=== PATIENT | female | born 1950 | race Two or more races ===

== ENCOUNTER 2021-05-13 08:16 | Inpatient (IN) | payer MEDICARE ==
[~2021-05-13] VITALS: Ht 152.4 cm; Wt 46.3 kg
[2021-05-13] MEDS ORDERED: MORPHINE SULFATE 4 MG/ML INJ. IVP ONE (08:45)
--- NOTE | 2021-05-13 08:59 | RAD ---
EXAM: Abdomen sonogram. HISTORY: Pain. TECHNIQUE: Sonographic imaging of the abdomen was performed. COMPARISON: None. FINDINGS: The liver is normal in size. No focal hepatic lesion is seen. There is cholelithiasis. Ther e is gallbladder distention and gallbladder wall thickening suggesting superimposed cholecystitis. Th e common bile duct is normal in caliber. The right kidney, pancreas and inferior vena cava are unrema rkable. IMPRESSION: Cholelithiasis with suspected superimposed cholecystitis. Electronically signed by: Willow Villanueva MD (05/13/2021 8:57 AM) [id number]
[2021-05-13 09:05] LABS: BASO # 0.1 x10^3/uL (0.0-0.2); BASO % 1 % (0-3); EOS # 0.1 x10^3/uL (0.0-0.7); EOS % 2 % (0-3); HEMATOCRIT 36.6 % (36.0-47.0); HEMOGLOBIN 12.3 g/dL (12.0-15.5); LYMPH # 0.9 x10^3/uL (1.0-4.8); LYMPH % 12 % (24-48); MEAN CORPUSCULAR HEMOGLOBIN 31 pg (25-35); MEAN CORPUSCULAR HGB CONC 34 g/dL (31-37); MEAN CORPUSCULAR VOLUME 91 fL (79-100); MONO # 0.8 x10^3/uL (0.0-1.1); MONO % 10 % (0-9); NEUT # 5.6 x10^3/uL (1.8-7.7); NEUT % 75 % (31-73); PLATELET COUNT 214 x10^3/uL (140-400); RED BLOOD COUNT 4.02 x10^6/uL (3.50-5.40); RED CELL DISTRIBUTION WIDTH 14.1 % (11.5-14.5); WHITE BLOOD COUNT 7.4 x10^3/uL (4.0-11.0)
[2021-05-13 09:14] LABS: CALCIUM 8.9 mg/dL (8.5-10.1); CREATININE 0.7 mg/dL (0.6-1.0); POTASSIUM 4.3 mmol/L (3.5-5.1)
--- NOTE | 2021-05-13 09:19 | RAD ---
EXAM: Chest, single view. HISTORY: Right upper quadrant pain. COMPARISON: None. FINDINGS: A frontal view of the chest is obtained. There is no infiltrate, pleural effusion or pneumo thorax. The heart is normal in size. IMPRESSION: No acute pulmonary finding. Electronically signed by: Willow Villanueva MD (05/13/2021 9:16 AM) [id number]
[2021-05-13 09:20] LABS: ALBUMIN 3.1 g/dL (3.4-5.0); DIRECT BILIRUBIN 0.6 mg/dL (0.0-0.2); TOTAL BILIRUBIN 1.2 mg/dL (0.2-1.0); TOTAL PROTEIN 6.6 g/dL (6.4-8.2)
--- NOTE | 2021-05-13 09:35 | EKG ---
[facility] [address] [place] [address] Test Date: 2021-05-13 Test Time: 08:55:46 Pat Name: SHAHRIAR ROSALES Department: Room: Gender: F Application Programmer Analyst: : 1950 Requested By: ANNY OSBORN Order Number: [id number] Reading MD: Scott Francisco Measurements Intervals [place] Rate: 70 P: 36 [place]: 142 QRS: -9 QRSD: 74 T: 15 QT: 370 QTc: 402 Interpretive Statements SINUS RHYTHM LEFTWARD AXIS QRS(T) CONTOUR ABNORMALITY CONSIDER ANTEROSEPTAL MYOCARDIAL DAMAGE POSSIBLY ABNORMAL ECG RI6.01 No previous ECG available for comparison Electronically Signed On 05-14-2021 14:25:57 SURFACE SUPPLY BREATHING APPARATUS by Scott Francisco
--- NOTE | 2021-05-13 10:07 | PHYS DOC ---
Past Medical History Past Surgical History: No Surgical History Smoking Status: Never Smoker Alcohol Use: None General Adult EDM: Chief Complaint: ABDOMINAL PAIN HPI: HPI: 71 yo F presents to the ED with her biological daughter, (patient consents to his/her/their knowledge and involvement in pts' medical care), with c/o "a lot of stomach pain," described as right sided and upper abdominal pain for the past month and a half. Also reports low back pain. Patient's daughter states she recently had an endoscopy with [facility] on 05/08 that showed a schatzis ring. Pt also c/o being tired and dizzy and almost fainted yesterday. Has a pending liver biopsy scheduled for . Review of Systems: Review of Systems: Constitutional: Denies fever or chills. [] Eyes: Denies change in visual acuity. [] HENT: Denies nasal congestion or sore throat. [] Respiratory: Denies cough or shortness of breath. [] Cardiovascular: Denies chest pain or edema. [] GI: Denies nausea, vomiting, bloody stools or diarrhea. [] : Denies dysuria or hematuria Musculoskeletal: Denies flank pain or joint pain. [] Integument: Denies rash or diaphoresis Neurologic: Denies headache, focal weakness or sensory changes. [] Endocrine: Denies polyuria or polydipsia. [] Lymphatic: Denies swollen glands. [] Psychiatric: Denies depression or anxiety. [] Heart Score: C/O Chest Pain: No Risk Factors: Risk Factors: DM, Current or recent (<one month) smoker, HTN, HLP, family hist ory of CAD, obesity. Risk Scores: Score 0 - 3: 2.5% MACE over next 6 weeks - Discharge Home Score 4 - 6: 20.3% MACE over next 6 weeks - Admit for Clinical Observation Score 7 - 10: 72.7% MACE over next 6 weeks - Early Invasive Strategies Current Medications: Current Medications Medications (Trade) Dose Ordered Sig/Flor Start Time Stop Time Status Last Admin Dose Admin Morphine Sulfate (Morphine Sulfate) 4 mg 1X ONCE 05/13/21 08:45 05/13/21 08:46 DC 05/13/21 08:52 4 MG Allergies: Allergies: Allergies Coded Allergies Type Severity Reaction Last Updated Verified No Known Drug Allergies 05/13/21 No Physical Exam: PE: Constitutional: Well developed, well nourished, no acute distress, non-toxic appearance. HENT: Normocephalic, atraumatic, Eyes: EOMI, conjunctiva normal, no discharge. Neck: Normal range of motion, supple, Cardiovascular: S1/2 present, regular rhythm Lungs & Thorax: Speaking in full sentences, bilateral equal chest rise, no tachypnea or increased work of breathing Abdomen: soft, diffuse tenderness Skin: Warm, dry, no erythema, no rash. [] Back: reports midline lumbar back pain, no step offs Extremities: No tenderness, no cyanosis, no lower extremity edema Neurologic: Alert and oriented X 3, normal motor function, normal sensory function, no focal deficits noted. [] Psychologic: Affect normal, judgement normal, mood normal. [] Current Patient Data: Labs: Laboratory Tests Test 05/13/21 08:48 White Blood Count 7.4 x10^3/uL (4.0-11.0) Red Blood Count 4.02 x10^6/uL (3.50-5.40) Hemoglobin 12.3 g/dL (12.0-15.5) Hematocrit 36.6 % (36.0-47.0) Mean Corpuscular Volume 91 fL (79-100) Mean Corpuscular Hemoglobin 31 pg (25-35) Mean Corpuscular Hemoglobin Concent 34 g/dL (31-37) Red Cell Distribution Width 14.1 % (11.5-14.5) Platelet Count 214 x10^3/uL (140-400) Neutrophils (%) (Auto) 75 % (31-73) H Lymphocytes (%) (Auto) 12 % (24-48) L Monocytes (%) (Auto) 10 % (0-9) H Eosinophils (%) (Auto) 2 % (0-3) Basophils (%) (Auto) 1 % (0-3) Neutrophils # (Auto) 5.6 x10^3/uL (1.8-7.7) Lymphocytes # (Auto) 0.9 x10^3/uL (1.0-4.8) L Monocytes # (Auto) 0.8 x10^3/uL (0.0-1.1) Eosinophils # (Auto) 0.1 x10^3/uL (0.0-0.7) Basophils # (Auto) 0.1 x10^3/uL (0.0-0.2) Sodium Level 140 mmol/L (136-145) Potassium Level 4.3 mmol/L (3.5-5.1) Chloride Level 102 mmol/L (98-107) Carbon Dioxide Level 27 mmol/L (21-32) Anion Gap 11 (6-14) Blood Urea Nitrogen 15 mg/dL (7-20) Creatinine 0.7 mg/dL (0.6-1.0) Estimated GFR (Cockcroft-Gault) 83.0 Glucose Level 108 mg/dL (70-99) H Calcium Level 8.9 mg/dL (8.5-10.1) Total Bilirubin 1.2 mg/dL (0.2-1.0) H Direct Bilirubin 0.6 mg/dL (0.0-0.2) H Aspartate Amino Transferase (AST) 236 U/L (15-37) H Alanine Aminotransferase (ALT) 190 U/L (14-59) H Alkaline Phosphatase 864 U/L (46-116) H Creatine Kinase 60 U/L (26-192) Total Protein 6.6 g/dL (6.4-8.2) Albumin 3.1 g/dL (3.4-5.0) L Lipase 112 U/L (73-393) Laboratory Tests 05/13/21 08:48 Laboratory Tests 05/13/21 08:48 Vital Signs: Vital Signs Date Time Temp Pulse Resp B/P (MAP) Pulse Ox O2 Delivery O2 Flow Rate FiO2 05/13/21 09:35 20 97 Room Air 05/13/21 08:25 98.1 82 134/63 (86) 98.1 EKG: EKG: Sinus rhythm 70 bpm, left axis deviation, normal intervals, T wave inversion lead III and V3, no ST elevation or ST depression Radiology/Procedures: Radiology/Procedures: []IMAGING REPORT Signed PATIENT: SHAHRIAR ROSALES EACCOUNT: [id number] : 1950 LOCATION: ER AGE: 71 SEX: F EXAM STATUS: PRE ER ORD. PHYSICIAN: ANNY OSBORN DO REASON: ruq pain PROCEDURE: PORTABLE CHEST 1V EXAM: Chest, single view. HISTORY: Right upper quadrant pain. COMPARISON: None. FINDINGS: A frontal view of the chest is obtained. There is no infiltrate, pleural effusion or pneumothorax. The heart is normal in size. IMPRESSION: No acute pulmonary finding. Electronically signed by: Willow Ramirez MD (05/13/2021 9:16 AM) [id number] DICTATED and SIGNED BY: WILLOW RAMIREZ MD DATE: 05/13/21 [id number] 0 IMAGING REPORT Signed PATIENT: SHAHRIAR ROSALES EACCOUNT: [id number] : 1950 LOCATION: ER AGE: 71 SEX: F EXAM STATUS: PRE ER ORD. PHYSICIAN: ANNY OSBORN DO REASON: ruq pain, r/o adriano PROCEDURE: ABDOMEN LTD EXAM: Abdomen sonogram. HISTORY: Pain. TECHNIQUE: Sonographic imaging of the abdomen was performed. COMPARISON: None. FINDINGS: The liver is normal in size. No focal hepatic lesion is seen. There is cholelithiasis. There is gallbladder distention and gallbladder wall thickening suggesting superimposed cholecystitis. The common bile duct is normal in caliber. The right kidney, pancreas and inferior vena cava are unremarkable. IMPRESSION: Cholelithiasis with suspected superimposed cholecystitis. Electronically signed by: Willow Ramirez MD (05/13/2021 8:57 AM) [id number] DICTATED and SIGNED BY: WILLOW RAMIREZ MD DATE: 05/13/21 [id number] 0 IMAGING REPORT Signed PATIENT: SHAHRIAR ROSALES EACCOUNT: [id number] : 1950 LOCATION: ER AGE: 71 SEX: F EXAM STATUS: REG ER ORD. PHYSICIAN: ANNY OSBORN DO REASON: diffuse abd pain PROCEDURE: CT ABD PELV W/ IV CONTRST ONLY EXAM: Abdomen and pelvis CT with intravenous contrast; lumbar spine CT without contrast. HISTORY: Pain. TECHNIQUE: Computed tomographic images of the abdomen and pelvis and lumbar spine were obtained following the administration of intravenous contrast. Multiplanar reformatting was performed. *One or more of the following individualized dose reduction techniques were utilized for this examination: 1. Automated exposure control. 2. Adjustment of the mA and/or kV according to patient size. 3. Use of iterative reconstruction technique. COMPARISON: Sonogram obtained on the same date. FINDINGS: Evaluation of the lower thorax demonstrates a 1.3 cm pleural-based nodular opacity with surrounding groundglass within the inferior lateral right middle lobe. There are few tiny groundglass opacities scattered throughout the right middle lobe, lingula and bilateral lower lobes, the largest of which measure approximately 6 mm. The heart is normal in size. There is no pleural effusion. There are innumerable hypodense lesions scattered throughout the liver. The largest of these measures 4.3 cm and demonstrates attenuation greater than simple fluid. There is a small anterior perihepatic fluid collection measuring approximately 12 mm in thickness. There is biliary ductal dilatation. There is gallbladder distention. No pancreatic lesion is seen. The spleen is normal in size. The stomach and adrenal glands are unremarkable. The kidneys are unremarkable. There is colonic diverticulosis. There is no convincing diverticulosis. There is no bowel obstruction. There is calcified atherosclerotic plaque involving the aorta. There is mild mesenteric stranding. No pathologically enlarged lymph node is seen. The bladder is unremarkable. There are partially calcified uterine fibroids. There is a small to moderate amount of pelvic free fluid. There may be a tiny right ovarian follicle. There is mild bilateral hip osteoarthritis. There is bone demineralization. There is multilevel endplate remodeling and Schmorl's node formation involving the lumbar spine. There is no listhesis. Ther e is multilevel facet arthropathy. At L1-L2, there is a shallow right paracentral disc protrusion. There is mild bilateral facet arthropathy. There is no stenosis. At L2-L3, there is a disc bulge and endplate osteophytosis. There is mild bilateral facet arthropathy. There is no stenosis. At L3-L4, there is a disc bulge. There is mild bilateral facet arthropathy. There is no stenosis. At L4-L5, there is a left foraminal to lateral disc protrusion and osteophyte complex superimposed on a disc bulge and endplate remodeling. There is moderate right and mild left facet arthropathy. There is mild left foraminal stenosis. There is moderate central canal stenosis. At L5-S1, there is a right lateral disc osteophyte complex superimposed on a disc bulge and endplate remodeling. There is mild left greater than right facet arthropathy. There is mild bilateral foraminal stenosis. IMPRESSION: 1. Innumerable hypodense lesions throughout the liver measuring up to 4.3 cm. The attenuation of these lesions is not typical for simple cysts. This can be seen with metastatic disease and better characterized with a liver protocol MRI. 2. Small anterior perihepatic fluid collection. 3. Biliary ductal dilatation and gallbladder distention. The cholelithiasis and gallbladder wall thickening demonstrated on the sonogram performed on the same date is not appreciated on this exam. Correlate with symptomatology. 4. 1.3 cm pleural-based nodular opacity with surrounding groundglass within the right middle lobe, possibly infectious or inflammatory in etiology. There are additional scattered tiny groundglass nodules within both lungs measuring up to [address] to assess for additional nodules and nodular opacities may be indicated given the aforementioned abdominal findings. 5. Degenerative change involving the lumbar spine, resulting in stenosis as described above. 6. Small to moderate amount of pelvic free fluid and suspected uterine fibroids. 7. Colonic diverticulosis. Electronically signed by: Willow Ramirez MD (05/13/2021 10:57 AM) [id number] DICTATED and SIGNED BY: WILLOW RAMIREZ MD DATE: 05/13/21 [id number] 0 Course & Med Decision Making: Course & Med Decision Making Pertinent Labs and Imaging studies reviewed. (See chart for details) Ultrasound concerning for acute cholecystitis in the setting of transaminitis. CT abdomen pelvis was pending at time of admission-is concerning for metastatic process w/numerous liver lesions. Pt admitted for further medical management. I have spoken with the patient and/or caregivers. I have explained the patient's condition, diagnosis and treatment plan based on the information available to me at this time. I have answered the patient's and/or caregivers questions and answered any concerns. The patient and/or caregivers have as good an understanding of the patient's diagnosis, condition and treatment plan as can be expected at this point. The patient has been stabilized within the capability of the emergency department. The patient will be transported for further care and management or will be moved to an observation or inpatient se rvice. I have communicated with the staff or medical practitioner taking over this patient's care. Remi Disclaimer: Remi Disclaimer: This electronic medical record was generated, in whole or in part, using a voice recognition dictation system. Departure Departure Impression: Primary Impression: Acute cholecystitis Additional Impressions: Transaminitis Lesion of liver Disposition: ADMITTED INPATIENT Admitting Physician: WILIAN (Dr. Mora) Condition: GUARDED Referrals: NO PCP (PCP) ANNY OSBORN DO May 13, 2021 10:07
[2021-05-13] MEDS ORDERED: IV NORMAL SALINE 1000ML BAG 1,000 ML IV ONE (10:15)
[2021-05-13] MEDS ORDERED: IOHEXOL 300 MG/ML 100ML VIAL. IV ONE (10:30)
--- NOTE | 2021-05-13 10:59 | RAD ---
EXAM: Abdomen and pelvis CT with intravenous contrast; lumbar spine CT without contrast. HISTORY: Pain. TECHNIQUE: Computed tomographic images of the abdomen and pelvis and lumbar spine were obtained follo wing the administration of intravenous contrast. Multiplanar reformatting was performed. *One or more of the following individualized dose reduction techniques were utilized for this examina tion: 1. Automated exposure control. 2. Adjustment of the mA and/or kV according to patient size. 3. Use of iterative reconstruction technique. COMPARISON: Sonogram obtained on the same date. FINDINGS: Evaluation of the lower thorax demonstrates a 1.3 cm pleural-based nodular opacity with renetta rounding groundglass within the inferior lateral right middle lobe. There are few tiny groundglass op acities scattered throughout the right middle lobe, lingula and bilateral lower lobes, the largest of which measure approximately 6 mm. The heart is normal in size. There is no pleural effusion. There are innumerable hypodense lesions scattered throughout the liver. The largest of these measures 4.3 cm and demonstrates attenuation greater than simple fluid. There is a small anterior perihepatic fluid collection measuring approximately 12 mm in thickness. There is biliary ductal dilatation. The re is gallbladder distention. No pancreatic lesion is seen. The spleen is normal in size. The stomach and adrenal glands are unremarkable. The kidneys are unremarkable. There is colonic diverticulosis. There is no convincing diverticulosis. There is no bowel obstruction . There is calcified atherosclerotic plaque involving the aorta. There is mild mesenteric stranding. No pathologically enlarged lymph node is seen. The bladder is unremarkable. There are partially calci fied uterine fibroids. There is a small to moderate amount of pelvic free fluid. There may be a tiny right ovarian follicle. There is mild bilateral hip osteoarthritis. There is bone demineralization. There is multilevel endplate remodeling and Schmorl's node formation involving the lumbar spine. There is no listhesis. There is multilevel facet arthropathy. At L1-L2, there is a shallow right paracentral disc protrusion. There is mild bilateral facet arthrop athy. There is no stenosis. At L2-L3, there is a disc bulge and endplate osteophytosis. There is mild bilateral facet arthropathy . There is no stenosis. At L3-L4, there is a disc bulge. There is mild bilateral facet arthropathy. There is no stenosis. At L4-L5, there is a left foraminal to lateral disc protrusion and osteophyte complex superimposed on a disc bulge and endplate remodeling. There is moderate right and mild left facet arthropathy. There is mild left foraminal stenosis. There is moderate central canal stenosis. At L5-S1, there is a right lateral disc osteophyte complex superimposed on a disc bulge and endplate remodeling. There is mild left greater than right facet arthropathy. There is mild bilateral foramina l stenosis. IMPRESSION: 1. Innumerable hypodense lesions throughout the liver measuring up to 4.3 cm. The attenuation of thes e lesions is not typical for simple cysts. This can be seen with metastatic disease and better charac terized with a liver protocol MRI. 2. Small anterior perihepatic fluid collection. 3. Biliary ductal dilatation and gallbladder distention. The cholelithiasis and gallbladder wall thic kening demonstrated on the sonogram performed on the same date is not appreciated on this exam. Corre late with symptomatology. 4. 1.3 cm pleural-based nodular opacity with surrounding groundglass within the right middle lobe, po ssibly infectious or inflammatory in etiology. There are additional scattered tiny groundglass nodule s within both lungs measuring up to [address] to assess for additional nodules and nod ular opacities may be indicated given the aforementioned abdominal findings. 5. Degenerative change involving the lumbar spine, resulting in stenosis as described above. 6. Small to moderate amount of pelvic free fluid and suspected uterine fibroids. 7. Colonic diverticulosis. Electronically signed by: Willow Villanueva MD (05/13/2021 10:57 AM) [id number]
[2021-05-13] MEDS ORDERED: SUCR1TAB PO (12:55)
[2021-05-13] MEDS ORDERED: OMEP20CA16 PO (12:55)
--- NOTE | 2021-05-13 13:17 | NUR ---
Pt arrived on unit at approx 1120 by wheelchair via ED staff. Pt's daughter present on admission. Pt currently PUI, PCR pending. Daughter informed she will be unable to visit until PCR swab results, daughter stayed to assist with admission questions, then left unit. Requests to speak with doctor in person. Pt denies pain on admission. POC/orders reviewed. Tele monitor applied. Will assume care of this pt.
[2021-05-13 13:26] LABS: BARBITURATES NEG (NEG); BENZODIAZEPINES NEG (NEG); CANNABINOIDS NEG (NEG); COCAINE NEG (NEG); METHADONE NEG (NEG); OPIATES POS (NEG); PHENCYCLIDINE NEG (NEG)
[2021-05-13 13:27] LABS: AMPHETAMINE/METHAMPHETAMINE NEG (NEG)
--- NOTE | 2021-05-13 14:06 | PDOC1 ---
History and Physical Date of Service: DOS: DATE: 05/13/21 TIME: 13:56 Chief Complaint: Chief Complain: Abdominal pain. History of Present Illness: HPI: History obtained from discussion with the ED physician and chart review Patient is a 71-year-old female with past medical history of GERD, diet- controlled diabetes and dyslipidemia not on any currently on any medications who comes into the ED with her daughter with complaints of right upper quadrant pain that is progressively gotten worse in the past month and a half. 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 Patient has had weight loss of 50 pounds in the last 3 months. Patient is only able to tolerate some foods that are thickened and pured but is unable to just drink clear water because it gives her choking sensation. Denies any odynophagia or coughing spells. Abdominal pain is in explained as right upper quadrant and radiates to her back and now she has lower back pain as well. Patient also endorses some nausea and vomiting and loss of appetite. She also endorses some bloating after eating. Denies any fevers, hematemesis, melena, shortness of breath, chest pain or palpitations. Of note, patient was actually scheduled for a liver biopsy for a liver lesion that was seen on MRI done by gastroenterology, Dr. Martinez. Patient was also scheduled for a follow-up on May 26, 2021 Past Medical/Surgical History: PMH/PSH: History of gastritis and Slutsky's ring, GERD No surgical history Allergies: Allergies: Coded Allergies: No Known Drug Allergies (Unverified , 05/13/21) Family History: Family History: Reviewed with no relevant findings Social History: Social History: Denies alcohol, drug or tobacco abuse Current Medications: Current Medications Current Medications Morphine Sulfate (Morphine Sulfate) 4 mg 1X ONCE IVP Last administered on 05/13/21at 08:52; Start 05/13/21 at 08:45; Stop 05/13/21 at 08:46; Status DC Sodium Chloride 1,000 ml @ 1,000 mls/hr 1X ONCE IV Last administered on 05/13/21at 10:26; Start 05/13/21 at 10:15; Stop 05/13/21 at 11:14; Status DC Iohexol (Omnipaque 300 Mg/ml) 75 ml 1X ONCE IV Last administered on 05/13/21at 10:28; Start 05/13/21 at 10:30; Stop 05/13/21 at 10:31; Status DC Active Scripts Active Reported Sucralfate 1 Gm Tablet 1 Tab PO TID Omeprazole 20 Mg Capsule. 1 Cap PO DAILY ROS: Review of Systems Review of System REVIEW OF SYSTEMS: GENERAL: Denies weakness SKIN: No bruising, hair changes or rashes. EYES: No blurred, double or loss of vision. NOSE AND THROAT: No history of nosebleeds, hoarseness or sore throat. HEART: No history of palpitations, chest pain or shortness of breath on exertion. LUNGS: Denies cough, hemoptysis, wheezing or shortness of breath. GASTROINTESTINAL: Denies changes in appetite, nausea, vomiting, diarrhea or constipation. GENITOURINARY: No history of frequency, urgency, hesitancy or nocturia. NEUROLOGIC: Denies history of numbness, tingling, or tremor. PSYCHIATRIC: No history of panic, anxiety or depression. ENDOCRINE: No history of heat or cold intolerance, polyuria or polydipsia. EXTREMITIES: Denies joint pain, pain on walking or stiffness. Physical Exam: Vital Signs: Vital Signs Date Time Temp Pulse Resp B/P (MAP) Pulse Ox O2 Delivery O2 Flow Rate FiO2 05/13/21 12:17 Room Air 05/13/21 10:55 76 16 102/54 (70) 98 05/13/21 08:25 98.1 98.1 Physcial Exam: GEN: No apparent distress. Alert and oriented HEENT: Normal cephalic, atraumatic, external auditory canals are patent EYES: Extraocular muscles are intact, pupil are equally round and reactive to light and accommodation MUSCULOSKELETAL: Well developed , well nourished, good range of motion ENDOCRINE: No thyromegaly was palpated LYMPHATICS: No cervical chain or axillary nodes were noted HEMATOPOIETIC: No bruising NECK: Supple, no JVD, no thyromegaly was noted LUNGS: Clear to auscultation in all lung [place] without rhonchi or wheezing HEART: RRR, S!, S2 present. Peripheral pulses intact, no obvious murmurs noted ABDOMEN: Soft, nontender. Positive bowel sounds, no organomegaly, normal bowel sounds EXTREMITIES: Without clubbing, cyanosis, or edema. Pedal pulses intact. Negative Homans sign NEUROLOGIC: Normal speech and tone. A&O x 3, moves all extremities, no obvious focal deficits PSYCHIATRIC: Normal affect, normal mood. Stable SKIN: No ulcerations or rashes, good skin turgor, no jaundice VASCULAR: Good capillary refill, neurovascular bundle appears to be intact Labs: Labs: Laboratory Tests Test 05/13/21 08:48 05/13/21 10:00 05/13/21 12:33 White Blood Count 7.4 x10^3/uL (4.0-11.0) Red Blood Count 4.02 x10^6/uL (3.50-5.40) Hemoglobin 12.3 g/dL (12.0-15.5) Hematocrit 36.6 % (36.0-47.0) Mean Corpuscular Volume 91 fL (79-100) Mean Corpuscular Hemoglobin 31 pg (25-35) Mean Corpuscular Hemoglobin Concent 34 g/dL (31-37) Red Cell Distribution Width 14.1 % (11.5-14.5) Platelet Count 214 x10^3/uL (140-400) Neutrophils (%) (Auto) 75 % (31-73) Lymphocytes (%) (Auto) 12 % (24-48) Monocytes (%) (Auto) 10 % (0-9) Eosinophils (%) (Auto) 2 % (0-3) Basophils (%) (Auto) 1 % (0-3) Neutrophils # (Auto) 5.6 x10^3/uL (1.8-7.7) Lymphocytes # (Auto) 0.9 x10^3/uL (1.0-4.8) Monocytes # (Auto) 0.8 x10^3/uL (0.0-1.1) Eosinophils # (Auto) 0.1 x10^3/uL (0.0-0.7) Basophils # (Auto) 0.1 x10^3/uL (0.0-0.2) Sodium Level 140 mmol/L (136-145) Potassium Level 4.3 mmol/L (3.5-5.1) Chloride Level 102 mmol/L (98-107) Carbon Dioxide Level 27 mmol/L (21-32) Anion Gap 11 (6-14) Blood Urea Nitrogen 15 mg/dL (7-20) Creatinine 0.7 mg/dL (0.6-1.0) Estimated GFR (Cockcroft-Gault) 83.0 Glucose Level 108 mg/dL (70-99) Calcium Level 8.9 mg/dL (8.5-10.1) Total Bilirubin 1.2 mg/dL (0.2-1.0) Direct Bilirubin 0.6 mg/dL (0.0-0.2) Aspartate Amino Transf (AST/SGOT) 236 U/L (15-37) Alanine Aminotransferase (ALT/SGPT) 190 U/L (14-59) Alkaline Phosphatase 864 U/L (46-116) Creatine Kinase 60 U/L (26-192) Total Protein 6.6 g/dL (6.4-8.2) Albumin 3.1 g/dL (3.4-5.0) Lipase 112 U/L (73-393) SARS-CoV-2 Antigen (Rapid) Negative (NEGATIVE) Urine Opiates Screen Pos (NEG) Urine Methadone Screen Neg (NEG) Urine Barbiturates Neg (NEG) Urine Phencyclidine Screen Neg (NEG) Urine Amphetamine/Methamphetamine Neg (NEG) Urine Benzodiazepines Screen Neg (NEG) Urine Cocaine Screen Neg (NEG) Urine Cannabinoids Screen Neg (NEG) Urine Ethyl Alcohol Neg (NEG) Laboratory Tests Test 05/13/21 08:48 05/13/21 10:00 05/13/21 12:33 White Blood Count 7.4 x10^3/uL (4.0-11.0) Red Blood Count 4.02 x10^6/uL (3.50-5.40) Hemoglobin 12.3 g/dL (12.0-15.5) Hematocrit 36.6 % (36.0-47.0) Mean Corpuscular Volume 91 fL (79-100) Mean Corpuscular Hemoglobin 31 pg (25-35) Mean Corpuscular Hemoglobin Concent 34 g/dL (31-37) Red Cell Distribution Width 14.1 % (11.5-14.5) Platelet Count 214 x10^3/uL (140-400) Neutrophils (%) (Auto) 75 % (31-73) Lymphocytes (%) (Auto) 12 % (24-48) Monocytes (%) (Auto) 10 % (0-9) Eosinophils (%) (Auto) 2 % (0-3) Basophils (%) (Auto) 1 % (0-3) Neutrophils # (Auto) 5.6 x10^3/uL (1.8-7.7) Lymphocytes # (Auto) 0.9 x10^3/uL (1.0-4.8) Monocytes # (Auto) 0.8 x10^3/uL (0.0-1.1) Eosinophils # (Auto) 0.1 x10^3/uL (0.0-0.7) Basophils # (Auto) 0.1 x10^3/uL (0.0-0.2) Sodium Level 140 mmol/L (136-145) Potassium Level 4.3 mmol/L (3.5-5.1) Chloride Level 102 mmol/L (98-107) Carbon Dioxide Level 27 mmol/L (21-32) Anion Gap 11 (6-14) Blood Urea Nitrogen 15 mg/dL (7-20) Creatinine 0.7 mg/dL (0.6-1.0) Estimated GFR (Cockcroft-Gault) 83.0 Glucose Level 108 mg/dL (70-99) Calcium Level 8.9 mg/dL (8.5-10.1) Total Bilirubin 1.2 mg/dL (0.2-1.0) Direct Bilirubin 0.6 mg/dL (0.0-0.2) Aspartate Amino Transf (AST/SGOT) 236 U/L (15-37) Alanine Aminotransferase (ALT/SGPT) 190 U/L (14-59) Alkaline Phosphatase 864 U/L (46-116) Creatine Kinase 60 U/L (26-192) Total Protein 6.6 g/dL (6.4-8.2) Albumin 3.1 g/dL (3.4-5.0) Lipase 112 U/L (73-393) SARS-CoV-2 Antigen (Rapid) Negative (NEGATIVE) Urine Opiates Screen Pos (NEG) Urine Methadone Screen Neg (NEG) Urine Barbiturates Neg (NEG) Urine Phencyclidine Screen Neg (NEG) Urine Amphetamine/Methamphetamine Neg (NEG) Urine Benzodiazepines Screen Neg (NEG) Urine Cocaine Screen Neg (NEG) Urine Cannabinoids Screen Neg (NEG) Urine Ethyl Alcohol Neg (NEG) Images: Images PROCEDURE: ABDOMEN LTD IMPRESSION: Cholelithiasis with suspected superimposed cholecystitis IMPRESSION: 1. Innumerable hypodense lesions throughout the liver measuring up to 4.3 cm. The attenuation of these lesions is not typical for simple cysts. This can be seen with metastatic disease and better characterized with a liver protocol MRI. 2. Small anterior perihepatic fluid collection. 3. Biliary ductal dilatation and gallbladder distention. The cholelithiasis and gallbladder wall thickening demonstrated on the sonogram performed on the same date is not appreciated on this exam. Correlate with symptomatology. 4. 1.3 cm pleural-based nodular opacity with surrounding groundglass within the right middle lobe, possibly infectious or inflammatory in etiology. There are additional scattered tiny groundglass nodules within both lungs measuring up to [address] to assess for additional nodules and nodular opacities may be indicated given the aforementioned abdominal findings. 5. Degenerative change involving the lumbar spine, resulting in stenosis as described above. 6. Small to moderate amount of pelvic free fluid and suspected uterine fibroids. 7. Colonic diverticulosis. Assessment/Plan Assessment/Plan Acute cholecystitis, possible choledocholithiasis Transaminitis related to liver lesion and also possibly biliary obstruction from cholelithiasis Innumerable hypodense lesions throughout the liver measuring up to 4.3 cm, possible malignancy 1.3 cm pleural-based nodular opacity with surrounding groundglass within the right middle lobe, possibly infectious or inflammatory in etiology Degenerative change involving the lumbar spine, resulting in stenosis as described above Small to moderate amount of pelvic free fluid and suspected uterine fibroids. Colonic diverticulosis. Admit to hospitalist service for further management General surgery consult for acute cholecystitis Continue empiric IV antibiotics to cover for cholecystitis and possible atypical right middle lobe pneumonia Keep n.p.o. Continue IV fluids GI consult for hepatic lesion management Pending acute hepatitis profile IR consult for liver biopsy OB consult for uterine fibroids Lovenox for DVT prophylaxis Protonix GI prophylaxis ADA diet CODE STATUS full Discussed with RN and SW Disposition inpatient management as above DPOA: Daughter In addition to my E/M visit, advance care planning done with A total time of 20 minutes was spent from 2:00 to 220 face to face in discussion regarding the patient's goals of care, CODE STATUS. Justifications for Admission Other Justification BRANDEN LEDEZMA MD May 13, 2021 14:06
[2021-05-13 15:00] VITALS: BP 119/49
--- NOTE | 2021-05-13 15:08 | PDOC2 ---
GI CONSULT Date of Service: DATE: 05/13/21 TIME: 14:56 Reason For Consult: liver lesions, concern for malignancy HPI: HPI: 71 y/o female who speaks [place], supportive daughter provides help with translation. Has recently seen Dr. Martinez for a variety of issues. H/o heartburn on omeprazole x 4-5 years. H/o dysphagia x 30 years, recently worse - mildly improved w/ sucralfate and felt in upper throat every time she e ats, drinks, or takes pills. Sometimes food/liquid comes up immediately. Sometimes it helps to put pills in pieces of banana and walk around. Decreased appetite and some nausea, also some bloating after eating. "Strong" epigastric pain radiating to RUQ - constant but worse after eating (if she's able to eat) and possibly better w/ walking, started about 3 months ago and is worse overall. Has lost 15-17 pounds in the past 3 months. No hematemesis, hematochezia, or melena. Came to ER for these chronic/worsening issues and also w/ weakness and dizziness. Daughter reports recent imaging including CTs of chest, abdomen, and pelvis and liver MRI showed "dark spots" on her liver. Follow-up EGD and colonoscopy @ [facility] on 05/08/21: reports daughter provides note Schatzki's ring, gastritis, and hemorrhoids. Daughter doesn't think esophageal dilation performed. She is scheduled for liver biopsy here on 05/16/21. [facility]. Denies GB, pancreas, and PUD history. PMH: PMH: DM and HLD - no longer requires treatment FH: Family History: Cancer (father - lung and prostate) Social History: Smoke: No ALCOHOL: none Drugs: None ROS: GEN: Denies fevers, chills, sweats HEENT: Denies blurred vision, sore throat CV: Denies chest pain RESP: Denies shortness of air, cough GI: Per HPI : Denies hematuria, dysuria ENDO: +weight loss NEURO: +dizziness MSK: +weakness SKIN: Denies jaundice, pruritus Vitals: Vitals: Vital Signs Date Time Temp Pulse Resp B/P (MAP) Pulse Ox O2 Delivery O2 Flow Rate FiO2 05/13/21 12:17 Room Air 05/13/21 10:55 76 16 102/54 (70) 98 05/13/21 08:25 98.1 98.1 Labs: Labs: Laboratory Tests Test 05/13/21 08:48 05/13/21 10:00 05/13/21 12:33 White Blood Count 7.4 x10^3/uL (4.0-11.0) Red Blood Count 4.02 x10^6/uL (3.50-5.40) Hemoglobin 12.3 g/dL (12.0-15.5) Hematocrit 36.6 % (36.0-47.0) Mean Corpuscular Volume 91 fL (79-100) Mean Corpuscular Hemoglobin 31 pg (25-35) Mean Corpuscular Hemoglobin Concent 34 g/dL (31-37) Red Cell Distribution Width 14.1 % (11.5-14.5) Platelet Count 214 x10^3/uL (140-400) Neutrophils (%) (Auto) 75 % (31-73) Lymphocytes (%) (Auto) 12 % (24-48) Monocytes (%) (Auto) 10 % (0-9) Eosinophils (%) (Auto) 2 % (0-3) Basophils (%) (Auto) 1 % (0-3) Neutrophils # (Auto) 5.6 x10^3/uL (1.8-7.7) Lymphocytes # (Auto) 0.9 x10^3/uL (1.0-4.8) Monocytes # (Auto) 0.8 x10^3/uL (0.0-1.1) Eosinophils # (Auto) 0.1 x10^3/uL (0.0-0.7) Basophils # (Auto) 0.1 x10^3/uL (0.0-0.2) Sodium Level 140 mmol/L (136-145) Potassium Level 4.3 mmol/L (3.5-5.1) Chloride Level 102 mmol/L (98-107) Carbon Dioxide Level 27 mmol/L (21-32) Anion Gap 11 (6-14) Blood Urea Nitrogen 15 mg/dL (7-20) Creatinine 0.7 mg/dL (0.6-1.0) Estimated GFR (Cockcroft-Gault) 83.0 Glucose Level 108 mg/dL (70-99) Calcium Level 8.9 mg/dL (8.5-10.1) Total Bilirubin 1.2 mg/dL (0.2-1.0) Direct Bilirubin 0.6 mg/dL (0.0-0.2) Aspartate Amino Transf (AST/SGOT) 236 U/L (15-37) Alanine Aminotransferase (ALT/SGPT) 190 U/L (14-59) Alkaline Phosphatase 864 U/L (46-116) Creatine Kinase 60 U/L (26-192) Total Protein 6.6 g/dL (6.4-8.2) Albumin 3.1 g/dL (3.4-5.0) Lipase 112 U/L (73-393) SARS-CoV-2 Antigen (Rapid) Negative (NEGATIVE) Urine Opiates Screen Pos (NEG) Urine Methadone Screen Neg (NEG) Urine Barbiturates Neg (NEG) Urine Phencyclidine Screen Neg (NEG) Urine Amphetamine/Methamphetamine Neg (NEG) Urine Benzodiazepines Screen Neg (NEG) Urine Cocaine Screen Neg (NEG) Urine Cannabinoids Screen Neg (NEG) Urine Ethyl Alcohol Neg (NEG) Allergies: Coded Allergies: No Known Drug Allergies (Unverified , 05/13/21) Medications: Current Medications Medications (Trade) Dose Ordered Sig/Flor Route PRN Reason Start Time Stop Time Status Last Admin Dose Admin Morphine Sulfate (Morphine Sulfate) 4 mg 1X ONCE IVP 05/13/21 08:45 05/13/21 08:46 DC 05/13/21 08:52 Sodium Chloride 1,000 ml @ 1,000 mls/hr 1X ONCE IV 05/13/21 10:15 05/13/21 11:14 DC 05/13/21 10:26 Iohexol (Omnipaque 300 Mg/ml) 75 ml 1X ONCE IV 05/13/21 10:30 05/13/21 10:31 DC 05/13/21 10:28 Imaging: Imaging: CXR 05/13 IMPRESSION: No acute pulmonary finding. Abd US 05/13 FINDINGS: The liver is normal in size. No focal hepatic lesion is seen. There is cholelithiasis. There is gallbladder distention and gallbladder wall thickening suggesting superimposed cholecystitis. The common bile duct is normal in caliber . The right kidney, pancreas and inferior vena cava are unremarkable. IMPRESSION: Cholelithiasis with suspected superimposed cholecystitis. CT A/P and L-spine 11/15 IMPRESSION: 1. Innumerable hypodense lesions throughout the liver measuring up to 4.3 cm. The attenuation of these lesions is not typical for simple cysts. This can be seen with metastatic disease and better characterized with a liver protocol MRI. 2. Small anterior perihepatic fluid collection. 3. Biliary ductal dilatation and gallbladder distention. The cholelithiasis and gallbladder wall thickening demonstrated on the sonogram performed on the same date is not appreciated on this exam. Correlate with symptomatology. 4. 1.3 cm pleural-based nodular opacity with surrounding groundglass within the right middle lobe, possibly infectious or inflammatory in etiology. There are additional scattered tiny groundglass nodules within both lungs measuring up to [address] to assess for additional nodules and nodular opacities may be indicated given the aforementioned abdominal findings. 5. Degenerative change involving the lumbar spine, resulting in stenosis as described above. 6. Small to moderate amount of pelvic free fluid and suspected uterine fibroids. 7. Colonic diverticulosis. PE: GEN: NAD, thin HEENT: Atraumatic, PERRL LUNGS: CTAB HEART: RRR ABD: NABS, epigastric discomfort, less so to RUQ, less so to left mid abdomen EXTREMITY: No edema SKIN: No rashes, no jaundice NEURO/PSYCH: A & O 3 A/P: A/P: Upper abdominal pain, weight loss, weakness Abnormal LFTs - impressive Alk Phos 864 Liver lesions concerning for malignancy - EGD and colonoscopy unrevealing for primary source - scheduled for liver biopsy Abnormal GB imaging Chronic dysphagia, h/o heartburn Schatzki's ring, gastritis - noted on EGD last week CRC screen - UTD Diverticulosis, hemorrhoids Rapid COVID negative -- Conflicting imaging reports. Will attempt to review outside imaging and records from our office. Surgery to see re: GB. Reviewed w/ Dr. Martinez - ?GB cancer? - needs liver biopsy, will ask IR to comment. HEDY ANGELES May 13, 2021 15:08
[2021-05-13] MEDS ORDERED: ONDANSETRON PF 4 MG/2 ML VIAL. IVP PRN (16:15)
[2021-05-13] MEDS ORDERED: SENNOSIDES 8.6 MG TABLET PO PRN (16:15)
[2021-05-13] MEDS ORDERED: PROCHLORPERAZINE 10 MG/2 ML VIAL. IV PRN (16:15)
[2021-05-13] MEDS ORDERED: ZOLPIDEM 5 MG TABLET. PO PRN (16:15)
[2021-05-13] MEDS ORDERED: ACETAMINOPHEN 325 MG TABLET. PO PRN (16:15)
[2021-05-13] MEDS ORDERED: DEXTROSE 50% 25 GM / 50ML DISP.SYRIN. IV PRN (16:15)
[2021-05-13] MEDS ORDERED: LORazepam 0.5 MG TABLET PO PRN (16:15)
[2021-05-13] MEDS ORDERED: DOCUSATE SODIUM 100 MG CAPSULE. PO PRN (16:15)
[2021-05-13 16:40] LABS: PROTHROMBIN TIME PATIENT 14.4 SEC (11.7-14.0)
[2021-05-13] MEDS: IV NORMAL SALINE 1000ML BAG 1,000 ML IV SCH (17:19)
[2021-05-13] MEDS: PANTOPRAZOLE IV PUSH 40 MG VIAL. IVP SCH (17:19)
[2021-05-13] MEDS: ENOXAPARIN 40 MG/0.4 ML SYRINGE. SQ SCH (17:19)
[2021-05-13] MEDS: AMPICILLIN/SULBACTAM 1.5 GM in IV NORMAL SALINE 50ML 50 ML IV SCH (18:12)
[2021-05-13 19:00] VITALS: BP 114/54
[2021-05-13] MEDS: MORPHINE SULFATE 2 MG/ML INJ. IVP PRN (22:33)
[2021-05-13 23:17] VITALS: BP 120/57
[2021-05-14] MEDS: AMPICILLIN/SULBACTAM 1.5 GM in IV NORMAL SALINE 50ML 50 ML IV SCH ×4 (00:27→17:38)
[2021-05-14] MEDS: IV NORMAL SALINE 1000ML BAG 1,000 ML IV SCH ×3 (00:29→22:15)
[2021-05-14 03:00] VITALS: BP 99/47
[2021-05-14 07:00] VITALS: BP 113/60
[2021-05-14 08:01] LABS: BASO % 1 % (0-3); EOS # 0.1 x10^3/uL (0.0-0.7); EOS % 1 % (0-3); HEMATOCRIT 34.1 % (36.0-47.0); HEMOGLOBIN 11.1 g/dL (12.0-15.5); LYMPH # 0.7 x10^3/uL (1.0-4.8); LYMPH % 10 % (24-48); MEAN CORPUSCULAR HEMOGLOBIN 30 pg (25-35); MEAN CORPUSCULAR HGB CONC 33 g/dL (31-37); MEAN CORPUSCULAR VOLUME 92 fL (79-100); MONO # 0.6 x10^3/uL (0.0-1.1); MONO % 9 % (0-9); NEUT # 5.4 x10^3/uL (1.8-7.7); NEUT % 79 % (31-73); PLATELET COUNT 200 x10^3/uL (140-400); RED BLOOD COUNT 3.69 x10^6/uL (3.50-5.40); RED CELL DISTRIBUTION WIDTH 14.7 % (11.5-14.5); WHITE BLOOD COUNT 6.8 x10^3/uL (4.0-11.0)
[2021-05-14 08:30] LABS: ALBUMIN 2.6 g/dL (3.4-5.0); ALBUMIN/GLOBULIN RATIO 0.8 (1.0-1.7); CALCIUM 8.3 mg/dL (8.5-10.1); CREATININE 0.6 mg/dL (0.6-1.0); GFR 99.1; POTASSIUM 3.8 mmol/L (3.5-5.1); TOTAL BILIRUBIN 1.3 mg/dL (0.2-1.0)
[2021-05-14] MEDS: PANTOPRAZOLE IV PUSH 40 MG VIAL. IVP SCH (08:33)
[2021-05-14 08:36] LABS: MAGNESIUM 1.9 mg/dL (1.8-2.4); PHOSPHORUS 4.7 mg/dL (2.6-4.7)
--- NOTE | 2021-05-14 10:11 | PDOC ---
Date of Service: DATE: 05/14/21 TIME: 10:06 Subjective: Subjective: Daughter present for translation help - upper abdominal pain last night, medicine helped, bit better this morning but noted again w/ walking to restroom. Objective: Vital Signs: Vital Signs Date Time Temp Pulse Resp B/P (MAP) Pulse Ox O2 Delivery O2 Flow Rate FiO2 05/14/21 07:00 97.5 69 17 113/60 (77) 98 Room Air 97.5 Labs: Laboratory Tests Test 05/13/21 12:33 05/13/21 16:20 05/14/21 07:20 Urine Opiates Screen Pos Urine Methadone Screen Neg Urine Barbiturates Neg Urine Phencyclidine Screen Neg Urine Amphetamine/Methamphetamine Neg Urine Benzodiazepines Screen Neg Urine Cocaine Screen Neg Urine Cannabinoids Screen Neg Urine Ethyl Alcohol Neg Prothrombin Time 14.4 SEC Prothromb Time International Ratio 1.1 White Blood Count 6.8 x10^3/uL Red Blood Count 3.69 x10^6/uL Hemoglobin 11.1 g/dL Hematocrit 34.1 % Mean Corpuscular Volume 92 fL Mean Corpuscular Hemoglobin 30 pg Mean Corpuscular Hemoglobin Concent 33 g/dL Red Cell Distribution Width 14.7 % Platelet Count 200 x10^3/uL Neutrophils (%) (Auto) 79 % Lymphocytes (%) (Auto) 10 % Monocytes (%) (Auto) 9 % Eosinophils (%) (Auto) 1 % Basophils (%) (Auto) 1 % Neutrophils # (Auto) 5.4 x10^3/uL Lymphocytes # (Auto) 0.7 x10^3/uL Monocytes # (Auto) 0.6 x10^3/uL Eosinophils # (Auto) 0.1 x10^3/uL Basophils # (Auto) 0.0 x10^3/uL Sodium Level 143 mmol/L Potassium Level 3.8 mmol/L Chloride Level 106 mmol/L Carbon Dioxide Level 20 mmol/L Anion Gap 17 Blood Urea Nitrogen 16 mg/dL Creatinine 0.6 mg/dL Estimated GFR (Cockcroft-Gault) 99.1 BUN/Creatinine Ratio 27 Glucose Level 54 mg/dL Calcium Level 8.3 mg/dL Phosphorus Level 4.7 mg/dL Magnesium Level 1.9 mg/dL Total Bilirubin 1.3 mg/dL Aspartate Amino Transf (AST/SGOT) 259 U/L Alanine Aminotransferase (ALT/SGPT) 192 U/L Alkaline Phosphatase 841 U/L Total Protein 6.0 g/dL Albumin 2.6 g/dL Albumin/Globulin Ratio 0.8 PE: GEN: NAD, thin LUNGS: CTAB HEART: RRR ABD: tender upper abdomen NEURO/PSYCH: A & O 3, [place]i speaking A/P: Upper abdominal pain, weight loss Abnormal LFTs, liver lesions, abnormal GB imaging Chronic dysphagia, h/o heartburn COVID negative -- Other opinions pending, liver biopsy recommended. Have asked for imaging records from [facility] in [place], [place] and our office. Justicifation of Admission Dx: Justifications for Admission: Justification of Admission Dx: Yes HEDY ANGELES May 14, 2021 10:11
--- NOTE | 2021-05-14 10:36 | NUR ---
SW following. Discussed with RN, pt from home, room air, NOP, COVID-19 negative. Pt having liver biopsy tomorrow. GI following. RN advised no SW needs at this time. SW will continue to follow.
--- NOTE | 2021-05-14 10:55 | PDOC2 ---
CONSULT Date of Consult Date of Consult DATE: 05/14/21 TIME: 10:54 Reason for Consult Reason for Consult: Fibroids History of Present Illness Reason for Visit: 71y who presented to the ER with abd pain. Over the last 2wks the pt has had intense back pain (both upper and lower). Recently she has become more fatigued and lightheaded. Yesterday she was unable to do anything. Over the 30 yrs she has had difficulty swallowing. It does not sound like she has been given a specific dx for this. On 03/29/21 she was referred to GI for gastritis. At the time she was having bloating and early satiety. She was sent for a CT by GI which revealed liver lesions. They then performed a MRI and a CT of the chest. Followed by a EGD/Colonoscopy. She was found to have a Schatzki rings. She was scheduled to have a liver bx this , but with her symptoms mentioned above they had to take her to the ER. In the ER she was found to have a nml CBC. Her liver enzymes were elevated, and her Hep panel was neg. A CT performed revealed the followin. Innumerable hypodense lesions throughout the liver measuring up to 4.3 cm. The attenuation of these lesions is not typical for simple cysts. This can be seen with metastatic disease and better characterized with a liver protocol MRI. 2. Small anterior perihepatic fluid collection. 3. Biliary ductal dilatation and gallbladder distention. The cholelithiasis and gallbladder wall thickening demonstrated on the sonogram performed on the same date is not appreciated on this exam. Correlate with symptomatology. 4. 1.3 cm pleural-based nodular opacity with surrounding groundglass within the right middle lobe, possibly infectious or inflammatory in etiology. There are additional scattered tiny groundglass nodules within both lungs measuring up to [address] to assess for additional nodules and nodular opacities may be indicated given the aforementioned abdominal findings. 5. Degenerative change involving the lumbar spine, resulting in stenosis as described above. 6. Small to moderate amount of pelvic free fluid and suspected uterine fibroids. 7. Colonic diverticulosis. 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 Menarche at 14yo, regular cycles, Menopause at 50yo Never symptoms of menopause SH: no tob, no EtOH FH: noncontributory Social History No ALCOHOL: none Drugs: None Current Problem List Problem List Problems Medical Problems: (1) Acute cholecystitis Status: Acute (2) Lesion of liver Status: Acute (3) Transaminitis Status: Acute Current Medications Current Medications Current Medications Morphine Sulfate (Morphine Sulfate) 4 mg 1X ONCE IVP Last administered on 05/13/21at 08:52; Start 05/13/21 at 08:45; Stop 05/13/21 at 08:46; Status DC Sodium Chloride 1,000 ml @ 1,000 mls/hr 1X ONCE IV Last administered on 05/13/21at 10:26; Start 05/13/21 at 10:15; Stop 05/13/21 at 11:14; Status DC Iohexol (Omnipaque 300 Mg/ml) 75 ml 1X ONCE IV Last administered on 05/13/21at 10:28; Start 05/13/21 at 10:30; Stop 05/13/21 at 10:31; Status DC Pantoprazole Sodium (PROTONIX VIAL for IV PUSH) 40 mg DAILYAC IVP Last administered on 05/14/21at 08:33; Start 05/13/21 at 17:00 Ampicillin Sodium/ Sulbactam Sodium 1.5 gm/Sodium Chloride 50 ml @ 100 mls/hr Q6HRS IV Last administered on 05/14/21at 06:01; Start 05/13/21 at 18:00 Sennosides (Senna) 17.2 mg PRN BID PRN PO CONSTIPATION; Start 05/13/21 at 16:15 Docusate Sodium (Colace) 100 mg PRN DAILY PRN PO HARD STOOLS; Start 05/13/21 at 16:15 Ondansetron HCl (Zofran) 4 mg PRN Q6HRS PRN IVP NAUSEA/VOMITING; Start 05/13/21 at 16:15 Dextrose (Dextrose 50%-Water Syringe) 12.5 gm PRN Q15MIN PRN IV SEE COMMENTS; Start 05/13/21 at 16:15 Sodium Chloride 1,000 ml @ 100 mls/hr Q10H IV Last administered on 05/14/21at 00:29; Start 05/13/21 at 16:15 Acetaminophen (Tylenol) 650 mg PRN Q4HRS PRN PO TEMP OVER 100.4F OR MILD PAIN; Start 05/13/21 at 16:15 Lorazepam (Ativan) 0.5 mg PRN Q6HRS PRN PO ANXIETY / AGITATION; Start 05/13/21 at 16:15 Lorazepam (Ativan Inj) 0.25 mg PRN Q4HRS PRN IV ANXIETY / AGITATION Last admin istered on 05/14/21at 00:27; Start 05/13/21 at 16:15 Enoxaparin Sodium (Lovenox 40mg Syringe) 40 mg Q24H SQ Last administered on 05/13/21at 17:19; Start 05/13/21 at 16:15 Morphine Sulfate (Morphine Sulfate) 1 mg PRN Q1HR PRN IV PAIN; Start 05/13/21 at 16:15 Morphine Sulfate (Morphine Sulfate) 2 mg PRN Q2HR PRN IVP SEVERE PAIN 7-10 Last administered on 05/13/21at 22:33; Start 05/13/21 at 16:15; Stop 05/14/21 at 16:14 Prochlorperazine Edisylate (Compazine) 10 mg PRN Q6HRS PRN IV NAUSEA/VOMITING; Start 05/13/21 at 16:15 Zolpidem Tartrate (Ambien) 2.5 mg PRN QHS PRN PO INSOMNIA; Start 05/13/21 at 16:15 Active Scripts Active Reported Sucralfate 1 Gm Tablet 1 Tab PO TID Omeprazole 20 Mg Capsule.dr 1 Cap PO DAILY Allergies Allergies: Coded Allergies: No Known Drug Allergies (Unverified , 05/13/21) Physical Exam General: Alert, Oriented X3, Cooperative, No acute distress Lungs: Clear to auscultation, Normal air movement Heart: Regular rate, Normal S1, Normal S2, No murmurs Abdomen: Normal bowel sounds, Soft, No tenderness, No hepatosplenomegaly, No masses Extremities: No clubbing, No cyanosis, No edema, Normal pulses, No tenderness/swelling Skin: No rashes, No breakdown Neuro: Normal gait, Normal speech, Normal tone, Sensation intact, Reflexes 2+ Psych/Mental Status: Mental status NL, Mood NL Vitals VITALS Vital Signs Date Time Temp Pulse Resp B/P (MAP) Pulse Ox O2 Delivery O2 Flow Rate FiO2 05/14/21 07:00 97.5 69 17 113/60 (77) 98 Room Air 97.5 Labs Labs Laboratory Tests Test 05/13/21 08:48 05/13/21 10:00 05/13/21 12:33 05/13/21 16:20 White Blood Count 7.4 x10^3/uL (4.0-11.0) Red Blood Count 4.02 x10^6/uL (3.50-5.40) Hemoglobin 12.3 g/dL (12.0-15.5) Hematocrit 36.6 % (36.0-47.0) Mean Corpuscular Volume 91 fL (79-100) Mean Corpuscular Hemoglobin 31 pg (25-35) Mean Corpuscular Hemoglobin Concent 34 g/dL (31-37) Red Cell Distribution Width 14.1 % (11.5-14.5) Platelet Count 214 x10^3/uL (140-400) Neutrophils (%) (Auto) 75 % (31-73) Lymphocytes (%) (Auto) 12 % (24-48) Monocytes (%) (Auto) 10 % (0-9) Eosinophils (%) (Auto) 2 % (0-3) Basophils (%) (Auto) 1 % (0-3) Neutrophils # (Auto) 5.6 x10^3/uL (1.8-7.7) Lymphocytes # (Auto) 0.9 x10^3/uL (1.0-4.8) Monocytes # (Auto) 0.8 x10^3/uL (0.0-1.1) Eosinophils # (Auto) 0.1 x10^3/uL (0.0-0.7) Basophils # (Auto) 0.1 x10^3/uL (0.0-0.2) Sodium Level 140 mmol/L (136-145) Potassium Level 4.3 mmol/L (3.5-5.1) Chloride Level 102 mmol/L (98-107) Carbon Dioxide Level 27 mmol/L (21-32) Anion Gap 11 (6-14) Blood Urea Nitrogen 15 mg/dL (7-20) Creatinine 0.7 mg/dL (0.6-1.0) Estimated GFR (Cockcroft-Gault) 83.0 Glucose Level 108 mg/dL (70-99) Calcium Level 8.9 mg/dL (8.5-10.1) Total Bilirubin 1.2 mg/dL (0.2-1.0) Direct Bilirubin 0.6 mg/dL (0.0-0.2) Aspartate Amino Transf (AST/SGOT) 236 U/L (15-37) Alanine Aminotransferase (ALT/SGPT) 190 U/L (14-59) Alkaline Phosphatase 864 U/L (46-116) Creatine Kinase 60 U/L (26-192) Total Protein 6.6 g/dL (6.4-8.2) Albumin 3.1 g/dL (3.4-5.0) Lipase 112 U/L (73-393) Hepatitis A IgM Antibody Nonreactive (Nonreactive) Hepatitis B Surface Antigen Nonreactive (Nonreactive) Hepatitis B Core IgM Antibody Nonreactive (Nonreactive) Hepatitis C IgG Antibody Nonreactive (Nonreactive) SARS-CoV-2 RNA (EMELINA) Negative (Negative) SARS-CoV-2 Antigen (Rapid) Negative (NEGATIVE) Urine Opiates Screen Pos (NEG) Urine Methadone Screen Neg (NEG) Urine Barbiturates Neg (NEG) Urine Phencyclidine Screen Neg (NEG) Urine Amphetamine/Methamphetamine Neg (NEG) Urine Benzodiazepines Screen Neg (NEG) Urine Cocaine Screen Neg (NEG) Urine Cannabinoids Screen Neg (NEG) Urine Ethyl Alcohol Neg (NEG) Prothrombin Time 14.4 SEC (11.7-14.0) Prothromb Time International Ratio 1.1 (0.8-1.1) Test 05/14/21 07:20 White Blood Count 6.8 x10^3/uL (4.0-11.0) Red Blood Count 3.69 x10^6/uL (3.50-5.40) Hemoglobin 11.1 g/dL (12.0-15.5) Hematocrit 34.1 % (36.0-47.0) Mean Corpuscular Volume 92 fL (79-100) Mean Corpuscular Hemoglobin 30 pg (25-35) Mean Corpuscular Hemoglobin Concent 33 g/dL (31-37) Red Cell Distribution Width 14.7 % (11.5-14.5) Platelet Count 200 x10^3/uL (140-400) Neutrophils (%) (Auto) 79 % (31-73) Lymphocytes (%) (Auto) 10 % (24-48) Monocytes (%) (Auto) 9 % (0-9) Eosinophils (%) (Auto) 1 % (0-3) Basophils (%) (Auto) 1 % (0-3) Neutrophils # (Auto) 5.4 x10^3/uL (1.8-7.7) Lymphocytes # (Auto) 0.7 x10^3/uL (1.0-4.8) Monocytes # (Auto) 0.6 x10^3/uL (0.0-1.1) Eosinophils # (Auto) 0.1 x10^3/uL (0.0-0.7) Basophils # (Auto) 0.0 x10^3/uL (0.0-0.2) Sodium Level 143 mmol/L (136-145) Potassium Level 3.8 mmol/L (3.5-5.1) Chloride Level 106 mmol/L (98-107) Carbon Dioxide Level 20 mmol/L (21-32) Anion Gap 17 (6-14) Blood Urea Nitrogen 16 mg/dL (7-20) Creatinine 0.6 mg/dL (0.6-1.0) Estimated GFR (Cockcroft-Gault) 99.1 BUN/Creatinine Ratio 27 (6-20) Glucose Level 54 mg/dL (70-99) Calcium Level 8.3 mg/dL (8.5-10.1) Phosphorus Level 4.7 mg/dL (2.6-4.7) Magnesium Level 1.9 mg/dL (1.8-2.4) Total Bilirubin 1.3 mg/dL (0.2-1.0) Aspartate Amino Transf (AST/SGOT) 259 U/L (15-37) Alanine Aminotransferase (ALT/SGPT) 192 U/L (14-59) Alkaline Phosphatase 841 U/L (46-116) Total Protein 6.0 g/dL (6.4-8.2) Albumin 2.6 g/dL (3.4-5.0) Albumin/Globulin Ratio 0.8 (1.0-1.7) Laboratory Tests Test 05/13/21 12:33 05/13/21 16:20 05/14/21 07:20 Urine Opiates Screen Pos (NEG) Urine Methadone Screen Neg (NEG) Urine Barbiturates Neg (NEG) Urine Phencyclidine Screen Neg (NEG) Urine Amphetamine/Methamphetamine Neg (NEG) Urine Benzodiazepines Screen Neg (NEG) Urine Cocaine Screen Neg (NEG) Urine Cannabinoids Screen Neg (NEG) Urine Ethyl Alcohol Neg (NEG) Prothrombin Time 14.4 SEC (11.7-14.0) Prothromb Time International Ratio 1.1 (0.8-1.1) White Blood Count 6.8 x10^3/uL (4.0-11.0) Red Blood Count 3.69 x10^6/uL (3.50-5.40) Hemoglobin 11.1 g/dL (12.0-15.5) Hematocrit 34.1 % (36.0-47.0) Mean Corpuscular Volume 92 fL (79-100) Mean Corpuscular Hemoglobin 30 pg (25-35) Mean Corpuscular Hemoglobin Concent 33 g/dL (31-37) Red Cell Distribution Width 14.7 % (11.5-14.5) Platelet Count 200 x10^3/uL (140-400) Neutrophils (%) (Auto) 79 % (31-73) Lymphocytes (%) (Auto) 10 % (24-48) Monocytes (%) (Auto) 9 % (0-9) Eosinophils (%) (Auto) 1 % (0-3) Basophils (%) (Auto) 1 % (0-3) Neutrophils # (Auto) 5.4 x10^3/uL (1.8-7.7) Lymphocytes # (Auto) 0.7 x10^3/uL (1.0-4.8) Monocytes # (Auto) 0.6 x10^3/uL (0.0-1.1) Eosinophils # (Auto) 0.1 x10^3/uL (0.0-0.7) Basophils # (Auto) 0.0 x10^3/uL (0.0-0.2) Sodium Level 143 mmol/L (136-145) Potassium Level 3.8 mmol/L (3.5-5.1) Chloride Level 106 mmol/L (98-107) Carbon Dioxide Level 20 mmol/L (21-32) Anion Gap 17 (6-14) Blood Urea Nitrogen 16 mg/dL (7-20) Creatinine 0.6 mg/dL (0.6-1.0) Estimated GFR (Cockcroft-Gault) 99.1 BUN/Creatinine Ratio 27 (6-20) Glucose Level 54 mg/dL (70-99) Calcium Level 8.3 mg/dL (8.5-10.1) Phosphorus Level 4.7 mg/dL (2.6-4.7) Magnesium Level 1.9 mg/dL (1.8-2.4) Total Bilirubin 1.3 mg/dL (0.2-1.0) Aspartate Amino Transf (AST/SGOT) 259 U/L (15-37) Alanine Aminotransferase (ALT/SGPT) 192 U/L (14-59) Alkaline Phosphatase 841 U/L (46-116) Total Protein 6.0 g/dL (6.4-8.2) Albumin 2.6 g/dL (3.4-5.0) Albumin/Globulin Ratio 0.8 (1.0-1.7) Assessment/Plan Assessment/Plan Assessment: 71y with abd pain, wt loss, liver lesions, and acute cholecystitis Recommendations: 1.) Pelvic mass suspected fibroids on CT. Uterine fibroids are very common and for many, they are entirely asymptomatic. Fibroids would not require any intervention. Since concerns of malignancy, there may be benefit in imaging her pelvis (with u/s) to determine if truly fibroids and not ovarian lesion (like ovarian CA primary) 2.) Abd pain unlikely related to pelvic findings, per other teams 3.) Liver lesions - Elevated LFTs, per Gen Surg and GI. Plans to bx 4.) Acute cholecystitis, possible choledocholithiasis per GI and Surg 5.) Chronic dysphagia - h/o heartburn 6.) Degenerative change involving the lumbar spine 7.) Colonic diverticulosis. 8.) Potential atypical pneumonia on abx 9.) Will cont to follow EDGAR LOPEZ MD May 14, 2021 10:55
[2021-05-14 11:00] VITALS: BP 150/51
--- NOTE | 2021-05-14 12:32 | PDOC2 ---
MICHELLE GIFFORD [employer] CONSULTANT 05/14/21 1232: CONSULT Date of Consult Date of Consult DATE: 05/14/21 TIME: 12:25 Reason for Consult Reason for Consult: cholecystitis Referring Physician Referring Physician: KELLY Identification/Chief Complaint Chief Complaint abdominal pain Source Source: Chart review, Patient History of Present Illness Reason for Visit: Issues began with swallowing 3 months ago, had seen Dr Martinez. Had CT done, concern for liver masses, underwent endoscopy. Continued issues, abdominal pain, back pain, inability to eat, pain with eating. Was scheduled for a liver bx, however became very lightheaded at home, admitted for ongoing management. Reports 15 lb weight loss in last couple months Past Medical History Cardiovascular: Hyperlipidemia Endocrine: Diabetes Past Surgical History Past Surgical History: No pertinent history Family History Family History: Other (lung and prostate cancer in father) Social History No ALCOHOL: none Drugs: None Current Problem List Problem List Problems Medical Problems: (1) Acute cholecystitis Status: Acute (2) Lesion of liver Status: Acute (3) Transaminitis Status: Acute Current Medications Current Medications Current Medications Morphine Sulfate (Morphine Sulfate) 4 mg 1X ONCE IVP Last administered on 05/13/21at 08:52; Start 05/13/21 at 08:45; Stop 05/13/21 at 08:46; Status DC Sodium Chloride 1,000 ml @ 1,000 mls/hr 1X ONCE IV Last administered on 05/13/21at 10:26; Start 05/13/21 at 10:15; Stop 05/13/21 at 11:14; Status DC Iohexol (Omnipaque 300 Mg/ml) 75 ml 1X ONCE IV Last administered on 05/13/21at 10:28; Start 05/13/21 at 10:30; Stop 05/13/21 at 10:31; Status DC Pantoprazole Sodium (PROTONIX VIAL for IV PUSH) 40 mg DAILYAC IVP Last administered on 05/14/21at 08:33; Start 05/13/21 at 17:00 Ampicillin Sodium/ Sulbactam Sodium 1.5 gm/Sodium Chloride 50 ml @ 100 mls/hr Q6HRS IV Last administered on 05/14/21at 06:01; Start 05/13/21 at 18:00 Sennosides (Senna) 17.2 mg PRN BID PRN PO CONSTIPATION; Start 05/13/21 at 16:15 Docusate Sodium (Colace) 100 mg PRN DAILY PRN PO HARD STOOLS; Start 05/13/21 at 16:15 Ondansetron HCl (Zofran) 4 mg PRN Q6HRS PRN IVP NAUSEA/VOMITING; Start 05/13/21 at 16:15 Dextrose (Dextrose 50%-Water Syringe) 12.5 gm PRN Q15MIN PRN IV SEE COMMENTS; Start 05/13/21 at 16:15 Sodium Chloride 1,000 ml @ 100 mls/hr Q10H IV Last administered on 05/14/21at 00:29; Start 05/13/21 at 16:15 Acetaminophen (Tylenol) 650 mg PRN Q4HRS PRN PO TEMP OVER 100.4F OR MILD PAIN; Start 05/13/21 at 16:15 Lorazepam (Ativan) 0.5 mg PRN Q6HRS PRN PO ANXIETY / AGITATION; Start 05/13/21 at 16:15 Lorazepam (Ativan Inj) 0.25 mg PRN Q4HRS PRN IV ANXIETY / AGITATION Last administered on 05/14/21at 00:27; Start 05/13/21 at 16:15 Enoxaparin Sodium (Lovenox 40mg Syringe) 40 mg Q24H SQ Last administered on 05/13/21at 17:19; Start 05/13/21 at 16:15 Morphine Sulfate (Morphine Sulfate) 1 mg PRN Q1HR PRN IV PAIN; Start 05/13/21 at 16:15 Morphine Sulfate (Morphine Sulfate) 2 mg PRN Q2HR PRN IVP SEVERE PAIN 7-10 Last administered on 05/13/21at 22:33; Start 05/13/21 at 16:15; Stop 05/14/21 at 16:14 Prochlorperazine Edisylate (Compazine) 10 mg PRN Q6HRS PRN IV NAUSEA/VOMITING; Start 05/13/21 at 16:15 Zolpidem Tartrate (Ambien) 2.5 mg PRN QHS PRN PO INSOMNIA; Start 05/13/21 at 16:15 Active Scripts Active Reported Sucralfate 1 Gm Tablet 1 Tab PO TID Omeprazole 20 Mg Capsule.dr 1 Cap PO DAILY Allergies Allergies: Coded Allergies: No Known Drug Allergies (Unverified , 05/13/21) ROS General: YES: Fatigue, Malaise, Appetite (loss) PSYCHOLOGICAL ROS: No: Anxiety, Depression Eyes: No Blurry vision, No Double vision HEENT: No: Heacaches, Sore Throat Hematological and Lymphatic: No: Bleeding Problems, Blood Clots Respiratory: No: Cough, SOB with excertion Cardiovascular: No Chest Pain, No Palpitations Gastrointestinal: Yes Other (see hpi) Genitourinary: No Dysuria, No Retention Musculoskeletal: No Joint Pain, No Muscle Pain Neurological: No Impaired Coord/balance, No Numbness/Tingling Skin: No Pruritus, No Rash Physical Exam General: Cooperative, No acute distress, Other (thin) HEENT: Atraumatic, PERRLA Lungs: Clear to auscultation, Normal air movement Heart: Regular rate, Normal S1, Normal S2 Abdomen: Soft, Other (ND, ttp upper abdomen) Extremities: No clubbing, No cyanosis Skin: No rashes, No breakdown Neuro: Normal gait, Normal speech Psych/Mental Status: Mental status NL, Mood NL MUSCULOSKELETAL: No deformity, No swelling Vitals VITALS Vital Signs Date Time Temp Pulse Resp B/P (MAP) Pulse Ox O2 Delivery O2 Flow Rate FiO2 05/14/21 07:00 97.5 69 17 113/60 (77) 98 Room Air 97.5 Labs Labs Laboratory Tests Test 05/13/21 08:48 05/13/21 10:00 05/13/21 12:33 05/13/21 16:20 White Blood Count 7.4 x10^3/uL (4.0-11.0) Red Blood Count 4.02 x10^6/uL (3.50-5.40) Hemoglobin 12.3 g/dL (12.0-15.5) Hematocrit 36.6 % (36.0-47.0) Mean Corpuscular Volume 91 fL (79-100) Mean Corpuscular Hemoglobin 31 pg (25-35) Mean Corpuscular Hemoglobin Concent 34 g/dL (31-37) Red Cell Distribution Width 14.1 % (11.5-14.5) Platelet Count 214 x10^3/uL (140-400) Neutrophils (%) (Auto) 75 % (31-73) Lymphocytes (%) (Auto) 12 % (24-48) Monocytes (%) (Auto) 10 % (0-9) Eosinophils (%) (Auto) 2 % (0-3) Basophils (%) (Auto) 1 % (0-3) Neutrophils # (Auto) 5.6 x10^3/uL (1.8-7.7) Lymphocytes # (Auto) 0.9 x10^3/uL (1.0-4.8) Monocytes # (Auto) 0.8 x10^3/uL (0.0-1.1) Eosinophils # (Auto) 0.1 x10^3/uL (0.0-0.7) Basophils # (Auto) 0.1 x10^3/uL (0.0-0.2) Sodium Level 140 mmol/L (136-145) Potassium Level 4.3 mmol/L (3.5-5.1) Chloride Level 102 mmol/L (98-107) Carbon Dioxide Level 27 mmol/L (21-32) Anion Gap 11 (6-14) Blood Urea Nitrogen 15 mg/dL (7-20) Creatinine 0.7 mg/dL (0.6-1.0) Estimated GFR (Cockcroft-Gault) 83.0 Glucose Level 108 mg/dL (70-99) Calcium Level 8.9 mg/dL (8.5-10.1) Total Bilirubin 1.2 mg/dL (0.2-1.0) Direct Bilirubin 0.6 mg/dL (0.0-0.2) Aspartate Amino Transf (AST/SGOT) 236 U/L (15-37) Alanine Aminotransferase (ALT/SGPT) 190 U/L (14-59) Alkaline Phosphatase 864 U/L (46-116) Creatine Kinase 60 U/L (26-192) Total Protein 6.6 g/dL (6.4-8.2) Albumin 3.1 g/dL (3.4-5.0) Lipase 112 U/L (73-393) Hepatitis A IgM Antibody Nonreactive (Nonreactive) Hepatitis B Surface Antigen Nonreactive (Nonreactive) Hepatitis B Core IgM Antibody Nonreactive (Nonreactive) Hepatitis C IgG Antibody Nonreactive (Nonreactive) SARS-CoV-2 RNA (EMELINA) Negative (Negative) SARS-CoV-2 Antigen (Rapid) Negative (NEGATIVE) Urine Opiates Screen Pos (NEG) Urine Methadone Screen Neg (NEG) Urine Barbiturates Neg (NEG) Urine Phencyclidine Screen Neg (NEG) Urine Amphetamine/Methamphetamine Neg (NEG) Urine Benzodiazepines Screen Neg (NEG) Urine Cocaine Screen Neg (NEG) Urine Cannabinoids Screen Neg (NEG) Urine Ethyl Alcohol Neg (NEG) Prothrombin Time 14.4 SEC (11.7-14.0) Prothromb Time International Ratio 1.1 (0.8-1.1) Test 05/14/21 07:20 White Blood Count 6.8 x10^3/uL (4.0-11.0) Red Blood Count 3.69 x10^6/uL (3.50-5.40) Hemoglobin 11.1 g/dL (12.0-15.5) Hematocrit 34.1 % (36.0-47.0) Mean Corpuscular Volume 92 fL (79-100) Mean Corpuscular Hemoglobin 30 pg (25-35) Mean Corpuscular Hemoglobin Concent 33 g/dL (31-37) Red Cell Distribution Width 14.7 % (11.5-14.5) Platelet Count 200 x10^3/uL (140-400) Neutrophils (%) (Auto) 79 % (31-73) Lymphocytes (%) (Auto) 10 % (24-48) Monocytes (%) (Auto) 9 % (0-9) Eosinophils (%) (Auto) 1 % (0-3) Basophils (%) (Auto) 1 % (0-3) Neutrophils # (Auto) 5.4 x10^3/uL (1.8-7.7) Lymphocytes # (Auto) 0.7 x10^3/uL (1.0-4.8) Monocytes # (Auto) 0.6 x10^3/uL (0.0-1.1) Eosinophils # (Auto) 0.1 x10^3/uL (0.0-0.7) Basophils # (Auto) 0.0 x10^3/uL (0.0-0.2) Sodium Level 143 mmol/L (136-145) Potassium Level 3.8 mmol/L (3.5-5.1) Chloride Level 106 mmol/L (98-107) Carbon Dioxide Level 20 mmol/L (21-32) Anion Gap 17 (6-14) Blood Urea Nitrogen 16 mg/dL (7-20) Creatinine 0.6 mg/dL (0.6-1.0) Estimated GFR (Cockcroft-Gault) 99.1 BUN/Creatinine Ratio 27 (6-20) Glucose Level 54 mg/dL (70-99) Calcium Level 8.3 mg/dL (8.5-10.1) Phosphorus Level 4.7 mg/dL (2.6-4.7) Magnesium Level 1.9 mg/dL (1.8-2.4) Total Bilirubin 1.3 mg/dL (0.2-1.0) Aspartate Amino Transf (AST/SGOT) 259 U/L (15-37) Alanine Aminotransferase (ALT/SGPT) 192 U/L (14-59) Alkaline Phosphatase 841 U/L (46-116) Total Protein 6.0 g/dL (6.4-8.2) Albumin 2.6 g/dL (3.4-5.0) Albumin/Globulin Ratio 0.8 (1.0-1.7) Laboratory Tests Test 05/13/21 12:33 05/13/21 16:20 05/14/21 07:20 Urine Opiates Screen Pos (NEG) Urine Methadone Screen Neg (NEG) Urine Barbiturates Neg (NEG) Urine Phencyclidine Screen Neg (NEG) Urine Amphetamine/Methamphetamine Neg (NEG) Urine Benzodiazepines Screen Neg (NEG) Urine Cocaine Screen Neg (NEG) Urine Cannabinoids Screen Neg (NEG) Urine Ethyl Alcohol Neg (NEG) Prothrombin Time 14.4 SEC (11.7-14.0) Prothromb Time International Ratio 1.1 (0.8-1.1) White Blood Count 6.8 x10^3/uL (4.0-11.0) Red Blood Count 3.69 x10^6/uL (3.50-5.40) Hemoglobin 11.1 g/dL (12.0-15.5) Hematocrit 34.1 % (36.0-47.0) Mean Corpuscular Volume 92 fL (79-100) Mean Corpuscular Hemoglobin 30 pg (25-35) Mean Corpuscular Hemoglobin Concent 33 g/dL (31-37) Red Cell Distribution Width 14.7 % (11.5-14.5) Platelet Count 200 x10^3/uL (140-400) Neutrophils (%) (Auto) 79 % (31-73) Lymphocytes (%) (Auto) 10 % (24-48) Monocytes (%) (Auto) 9 % (0-9) Eosinophils (%) (Auto) 1 % (0-3) Basophils (%) (Auto) 1 % (0-3) Neutrophils # (Auto) 5.4 x10^3/uL (1.8-7.7) Lymphocytes # (Auto) 0.7 x10^3/uL (1.0-4.8) Monocytes # (Auto) 0.6 x10^3/uL (0.0-1.1) Eosinophils # (Auto) 0.1 x10^3/uL (0.0-0.7) Basophils # (Auto) 0.0 x10^3/uL (0.0-0.2) Sodium Level 143 mmol/L (136-145) Potassium Level 3.8 mmol/L (3.5-5.1) Chloride Level 106 mmol/L (98-107) Carbon Dioxide Level 20 mmol/L (21-32) Anion Gap 17 (6-14) Blood Urea Nitrogen 16 mg/dL (7-20) Creatinine 0.6 mg/dL (0.6-1.0) Estimated GFR (Cockcroft-Gault) 99.1 BUN/Creatinine Ratio 27 (6-20) Glucose Level 54 mg/dL (70-99) Calcium Level 8.3 mg/dL (8.5-10.1) Phosphorus Level 4.7 mg/dL (2.6-4.7) Magnesium Level 1.9 mg/dL (1.8-2.4) Total Bilirubin 1.3 mg/dL (0.2-1.0) Aspartate Amino Transf (AST/SGOT) 259 U/L (15-37) Alanine Aminotransferase (ALT/SGPT) 192 U/L (14-59) Alkaline Phosphatase 841 U/L (46-116) Total Protein 6.0 g/dL (6.4-8.2) Albumin 2.6 g/dL (3.4-5.0) Albumin/Globulin Ratio 0.8 (1.0-1.7) Assessment/Plan Assessment/Plan liver masses, concern for malginancy, bx planned tomorrow possible cholecystitis imaging reviewed will have SCOOBY Bates MD 05/14/21 1793: CONSULT Assessment/Plan Assessment/Plan Pt seen and examined. Agree with . Sher's note Pt with c/o RUQ pain TTP RUQ imaging c/w multiple liver masses agree with biopsy prior to surgery. d/w pt and pt's supportive family. Thanks for consult! MICHELLE GIFFORD APRN May 14, 2021 12:32 SCOOBY SULLIVAN MD May 14, 2021 18:28
[2021-05-14] MEDS: AA 4.25 %/CALCIUM/LYTES/D5W 1,000 ML IV SCH (13:00)
[2021-05-14] MEDS: ENOXAPARIN 40 MG/0.4 ML SYRINGE. SQ SCH (13:31)
[2021-05-14] MEDS: MORPHINE SULFATE 2 MG/ML INJ. IVP PRN (13:57)
--- NOTE | 2021-05-14 14:14 | PDOC ---
[facility] PROGRESS NOTE Date of Service DOS: DATE: 05/14/21 TIME: 14:11 Chief Complaint Chief Complaint Acute cholecystitis, possible choledocholithiasis Transaminitis related to liver lesion and also possibly biliary obstruction from cholelithiasis Innumerable hypodense lesions throughout the liver measuring up to 4.3 cm, possible malignancy 1.3 cm pleural-based nodular opacity with surrounding groundglass within the right middle lobe, possibly infectious or inflammatory in etiology Degenerative change involving the lumbar spine, resulting in stenosis as described above Small to moderate amount of pelvic free fluid and suspected uterine fibroids. Colonic diverticulosis. Admit to hospitalist service for further management General surgery consult for acute cholecystitis Continue empiric IV antibiotics to cover for cholecystitis and possible atypical right middle lobe pneumonia Keep n.p.o. Continue IV fluids GI consult for hepatic lesion management IR consult for liver biopsy OB consult for uterine fibroids Holding DVT prophylaxis until after procedure Protonix GI prophylaxis ADA diet CODE STATUS full Discussed with RN and SW Disposition inpatient management as above DPOA: Daughter History of Present Illness History of Present Illness History obtained from discussion with the ED physician and chart review Patient is a 71-year-old female with past medical history of GERD, diet- controlled diabetes and dyslipidemia not on any currently on any medications who comes into the ED with her daughter with complaints of right upper quadrant pain that is progressively gotten worse in the past month and a half. 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 Patient has had weight loss of 50 pounds in the last 3 months. Patient is only able to tolerate some foods that are thickened and pured but is unable to just drink clear water because it gives her choking sensation. Denies any odynophagia or coughing spells. Abdominal pain is in explained as right upper quadrant and radiates to her back and now she has lower back pain as well. Patient also endorses some nausea and vomiting and loss of appetite. She also endorses some bloating after eating. Denies any fevers, hematemesis, melena, shortness of breath, chest pain or palpitations. Of note, patient was actually scheduled for a liver biopsy for a liver lesion that was seen on MRI done by gastroenterology, Dr. Martinez. Patient was also scheduled for a follow-up on May 26, 202105/14 Patient evaluated and examined at bedside. Still complaining of some pain controlled with current meds. Appears planning for liver biopsy tomorrow. Gynecology consulted. Vitals/I&O Vitals/I&O: Vital Signs Date Time Temp Pulse Resp B/P (MAP) Pulse Ox O2 Delivery O2 Flow Rate FiO2 05/14/21 13:57 Room Air 05/14/21 11:00 98.1 71 17 150/51 (84) 96 98.1 I & O 05/13/21 05/13/21 05/14/21 15:00 23:00 07:00 Intake Total 1000 ml 50 ml 1050 ml Output Total 300 ml 300 ml Balance 700 ml 50 ml 750 ml Physical Exam General: Cooperative, No acute distress, Other (thin) Heart: Regular rate, Normal S1, Normal S2 Abdomen: Soft, Other (ND, ttp upper abdomen) Extremities: No clubbing, No cyanosis Skin: No rashes, No breakdown Labs Labs: Laboratory Tests Test 05/13/21 16:20 05/14/21 07:20 Prothrombin Time 14.4 SEC (11.7-14.0) Prothromb Time International Ratio 1.1 (0.8-1.1) White Blood Count 6.8 x10^3/uL (4.0-11.0) Red Blood Count 3.69 x10^6/uL (3.50-5.40) Hemoglobin 11.1 g/dL (12.0-15.5) Hematocrit 34.1 % (36.0-47.0) Mean Corpuscular Volume 92 fL (79-100) Mean Corpuscular Hemoglobin 30 pg (25-35) Mean Corpuscular Hemoglobin Concent 33 g/dL (31-37) Red Cell Distribution Width 14.7 % (11.5-14.5) Platelet Count 200 x10^3/uL (140-400) Neutrophils (%) (Auto) 79 % (31-73) Lymphocytes (%) (Auto) 10 % (24-48) Monocytes (%) (Auto) 9 % (0-9) Eosinophils (%) (Auto) 1 % (0-3) Basophils (%) (Auto) 1 % (0-3) Neutrophils # (Auto) 5.4 x10^3/uL (1.8-7.7) Lymphocytes # (Auto) 0.7 x10^3/uL (1.0-4.8) Monocytes # (Auto) 0.6 x10^3/uL (0.0-1.1) Eosinophils # (Auto) 0.1 x10^3/uL (0.0-0.7) Basophils # (Auto) 0.0 x10^3/uL (0.0-0.2) Sodium Level 143 mmol/L (136-145) Potassium Level 3.8 mmol/L (3.5-5.1) Chloride Level 106 mmol/L (98-107) Carbon Dioxide Level 20 mmol/L (21-32) Anion Gap 17 (6-14) Blood Urea Nitrogen 16 mg/dL (7-20) Creatinine 0.6 mg/dL (0.6-1.0) Estimated GFR (Cockcroft-Gault) 99.1 BUN/Creatinine Ratio 27 (6-20) Glucose Level 54 mg/dL (70-99) Calcium Level 8.3 mg/dL (8.5-10.1) Phosphorus Level 4.7 mg/dL (2.6-4.7) Magnesium Level 1.9 mg/dL (1.8-2.4) Total Bilirubin 1.3 mg/dL (0.2-1.0) Aspartate Amino Transf (AST/SGOT) 259 U/L (15-37) Alanine Aminotransferase (ALT/SGPT) 192 U/L (14-59) Alkaline Phosphatase 841 U/L (46-116) Total Protein 6.0 g/dL (6.4-8.2) Albumin 2.6 g/dL (3.4-5.0) Albumin/Globulin Ratio 0.8 (1.0-1.7) Assessment and Plan Assessmemt and Plan Problems Medical Problems: (1) Acute cholecystitis Status: Acute (2) Lesion of liver Status: Acute (3) Transaminitis Status: Acute Comment Review of Relevant I have reviewed the following items jerry (where applicable) has been applied. Medications: Current Medications Medications (Trade) Dose Ordered Sig/Flor Route PRN Reason Start Time Stop Time Status Last Admin Dose Admin Pantoprazole Sodium (PROTONIX VIAL for IV PUSH) 40 mg DAILYAC IVP 05/13/21 17:00 05/14/21 08:33 Ampicillin Sodium/ Sulbactam Sodium 1.5 gm/Sodium Chloride 50 ml @ 100 mls/hr Q6HRS IV 05/13/21 18:00 05/14/21 11:45 Sodium Chloride 1,000 ml @ 100 mls/hr Q10H IV 05/13/21 16:15 05/14/21 00:29 Lorazepam (Ativan Inj) 0.25 mg PRN Q4HRS PRN IV ANXIETY / AGITATION 05/13/21 16:15 05/14/21 00:27 Enoxaparin Sodium (Lovenox 40mg Syringe) 40 mg Q24H SQ 05/13/21 16:15 05/13/21 17:19 Morphine Sulfate (Morphine Sulfate) 2 mg PRN Q2HR PRN IVP SEVERE PAIN 7-10 05/13/21 16:15 05/14/21 16:14 05/14/21 13:57 Amino Acids/ Electrolytes/ Dextrose 1,000 ml @ 80 mls/hr [id number] IV 05/14/21 13:00 05/14/21 13:00 Justifications for Admission Other Justification Acute cholecystitis, dysphagia ROLANDO BAUTISTA MD May 14, 2021 14:13
[2021-05-14 15:00] VITALS: BP 119/57
[2021-05-14 19:51] VITALS: BP 117/57
[2021-05-14 23:28] VITALS: BP 115/71
[2021-05-15] VITALS (18 sets, daily range): BP systolic 112–148; BP diastolic 50–64
[2021-05-15] MEDS: AMPICILLIN/SULBACTAM 1.5 GM in IV NORMAL SALINE 50ML 50 ML IV SCH ×4 (01:18→17:52)
[2021-05-15] MEDS: AA 4.25 %/CALCIUM/LYTES/D5W 1,000 ML IV SCH ×2 (02:25→14:00)
[2021-05-15] MEDS: MORPHINE SULFATE 2 MG/ML INJ. IV PRN ×3 (05:41→21:07)
[2021-05-15 06:47] LABS: BASO % 1 % (0-3); EOS # 0.1 x10^3/uL (0.0-0.7); EOS % 2 % (0-3); HEMATOCRIT 30.9 % (36.0-47.0); HEMOGLOBIN 10.4 g/dL (12.0-15.5); LYMPH # 0.7 x10^3/uL (1.0-4.8); LYMPH % 11 % (24-48); MEAN CORPUSCULAR HEMOGLOBIN 31 pg (25-35); MEAN CORPUSCULAR HGB CONC 34 g/dL (31-37); MEAN CORPUSCULAR VOLUME 91 fL (79-100); MONO # 0.8 x10^3/uL (0.0-1.1); MONO % 11 % (0-9); NEUT # 5.1 x10^3/uL (1.8-7.7); NEUT % 76 % (31-73); PLATELET COUNT 190 x10^3/uL (140-400); RED BLOOD COUNT 3.41 x10^6/uL (3.50-5.40); RED CELL DISTRIBUTION WIDTH 14.6 % (11.5-14.5); WHITE BLOOD COUNT 6.8 x10^3/uL (4.0-11.0)
[2021-05-15 07:02] LABS: CALCIUM 8.2 mg/dL (8.5-10.1); CREATININE 0.7 mg/dL (0.6-1.0); MAGNESIUM 2.1 mg/dL (1.8-2.4); POTASSIUM 3.9 mmol/L (3.5-5.1)
--- NOTE | 2021-05-15 08:49 | PDOC ---
Date of Service: DATE: 05/15/21 TIME: 08:45 Subjective: Subjective: Indicates upper abdominal pain at 5:00 a.m. and that IV pain medication helped. Objective: Objective: D/w nurse - for liver biopsy today - IR to discuss w/ pt and daughter when daughter arrives to help translate. OPTHALMIC TECH Bedside Swallow Eval 05/14 Swallow eval completed earlier this date. Pt's dtr present. DW RN Jai and chart reviewed. Jai indicated that surgery may consider allowing clears prior to planned liver biopsy 05/15. Limited trials of ice chips and small sip thin liquids x2 provided. Puree and solids NT. Although oral mech was grossly WFLs, pt had significant residue and delay in swallow initiation. Delay appeared to be oral and dtr noted that pt has to squeeze her fist, or an object, or tap on her own forehead to produce swallow. Other secondary behaviors possibly c/w increased effort were also present. Pt's dtr also stated that she observes anxiety in pt related to swallowing when environment is not calm. Dtr described pt's diet at home as primarily puree, thin puree and liquids. No overt or subtle s/s aspiration during this exam. No clear indication of pharyngeal dysphagia. IMPRESSIONS: Secondary behaviors present r/t swallowing which may have developed in response to a primary dysphagia, either oropharyngeal or esophageal. May benefit from further imaging to further outline swallow function. No overt s/s aspiration on limited amts of ice chips and sips of liquid. RECOMMENDATIONS: Diet per MD; no indication of aspiration on small amts of ice chips and sips. Ok for clears from perspective of swallow function. Consider imaging in immediate future to further outline swallow function. D/w Ivet/OPTHALMIC TECH yesterday - will plan for videoswallow/esophagram tomorrow. Records reviewed and include: EGD 05/08/21: mild Schatzki's ring (dilated 54Fr), chronic gastritis, normal duodenum - no biopsies. Colonoscopy 05/08/21: non-bleeding internal hemorrhoids - no biopsies. MRI/MRCP 04/25/21: redemonstration of numerous hepatic masses, distention of gallbladder with otherwise no biliary ductal dilatation, krishna hepatis and retroperitoneal lymphadenopathy suspicious for sugar metastasis. CT chest 04/25/21: small benign-appearing noncalcified pulmonary nodules measuring up to 0.5cm located in lower lobes bilaterally most typical for noncalcified granulomata or other postinflammatory nodules, no evidence for pulmonary mets, no evidence for hilar of mediastinal lymphadenopathy, thoracic esophagus is normal in caliber and configuration, no evidence for osseous metastatic disease. CT A/P 04/04/21: multiple peripherally enhancing hepatic lesions, highly suspicious for hepatic metastatic disease, focal biliary enhancement in the region of the cyst duct which is contiguous with ill-defined soft tissue at the level of the gallbladder neck and moderate distention of the gallbladder - cholangiocarcinoma or primary gallbladder malignancy could have this appearance, small amount of nonocclusive thrombus within the distal left portal vein - may represent bland thrombus or tumor throbum, mild periportal lymphadenoatphy, mild prominent loops of distal small bowel w/ fecalization of the terminal ileum. Vital Signs: Vital Signs Date Time Temp Pulse Resp B/P (MAP) Pulse Ox O2 Delivery O2 Flow Rate FiO2 05/15/21 07:00 98.8 57 18 113/55 (74) 96 98.8 05/15/21 06:11 Room Air Labs: Laboratory Tests Test 05/15/21 05:30 White Blood Count 6.8 x10^3/uL Red Blood Count 3.41 x10^6/uL Hemoglobin 10.4 g/dL Hematocrit 30.9 % Mean Corpuscular Volume 91 fL Mean Corpuscular Hemoglobin 31 pg Mean Corpuscular Hemoglobin Concent 34 g/dL Red Cell Distribution Width 14.6 % Platelet Count 190 x10^3/uL Neutrophils (%) (Auto) 76 % Lymphocytes (%) (Auto) 11 % Monocytes (%) (Auto) 11 % Eosinophils (%) (Auto) 2 % Basophils (%) (Auto) 1 % Neutrophils # (Auto) 5.1 x10^3/uL Lymphocytes # (Auto) 0.7 x10^3/uL Monocytes # (Auto) 0.8 x10^3/uL Eosinophils # (Auto) 0.1 x10^3/uL Basophils # (Auto) 0.0 x10^3/uL Sodium Level 142 mmol/L Potassium Level 3.9 mmol/L Chloride Level 108 mmol/L Carbon Dioxide Level 25 mmol/L Anion Gap 9 Blood Urea Nitrogen 20 mg/dL Creatinine 0.7 mg/dL Estimated GFR (Cockcroft-Gault) 83.0 Glucose Level 157 mg/dL Calcium Level 8.2 mg/dL Magnesium Level 2.1 mg/dL PE: GEN: NAD LUNGS: CTAB HEART: RRR ABD: soft, epigastric discomfort NEURO/PSYCH: A & O 3 A/P: Upper abdominal pain, weight loss Abnormal LFTs, liver lesions, abnormal GB imaging Chronic dysphagia, h/o heartburn -- For liver biopsy today. Okay to ADAT after this. Swallow eval ongoing as discussed. Outside records as above. Justicifation of Admission Dx: Justifications for Admission: Justification of Admission Dx: Yes HEDY ANGELES May 15, 2021 08:49
[2021-05-15] MEDS: PANTOPRAZOLE IV PUSH 40 MG VIAL. IVP SCH (09:21)
[2021-05-15] MEDS: IV NORMAL SALINE 1000ML BAG 1,000 ML IV SCH ×2 (09:22→17:54)
--- NOTE | 2021-05-15 10:22 | PDOC ---
[facility] PROGRESS NOTE Date of Service: DATE: 05/15/21 TIME: 10:21 Subjective: No interval changes Objective: Vital Signs: Vital Signs Date Time Temp Pulse Resp B/P (MAP) Pulse Ox O2 Delivery O2 Flow Rate FiO2 05/14/21 07:00 97.5 69 17 113/60 (77) 98 Room Air 97.5 Vital Signs Date Time Temp Pulse Resp B/P (MAP) Pulse Ox O2 Delivery O2 Flow Rate FiO2 05/15/21 09:21 Room Air 05/15/21 07:00 98.8 57 18 113/55 (74) 96 98.8 Labs: Laboratory Tests Test 05/15/21 05:30 White Blood Count 6.8 x10^3/uL (4.0-11.0) Red Blood Count 3.41 x10^6/uL (3.50-5.40) L Hemoglobin 10.4 g/dL (12.0-15.5) L Hematocrit 30.9 % (36.0-47.0) L Mean Corpuscular Volume 91 fL (79-100) Mean Corpuscular Hemoglobin 31 pg (25-35) Mean Corpuscular Hemoglobin Concent 34 g/dL (31-37) Red Cell Distribution Width 14.6 % (11.5-14.5) H Platelet Count 190 x10^3/uL (140-400) Neutrophils (%) (Auto) 76 % (31-73) H Lymphocytes (%) (Auto) 11 % (24-48) L Monocytes (%) (Auto) 11 % (0-9) H Eosinophils (%) (Auto) 2 % (0-3) Basophils (%) (Auto) 1 % (0-3) Neutrophils # (Auto) 5.1 x10^3/uL (1.8-7.7) Lymphocytes # (Auto) 0.7 x10^3/uL (1.0-4.8) L Monocytes # (Auto) 0.8 x10^3/uL (0.0-1.1) Eosinophils # (Auto) 0.1 x10^3/uL (0.0-0.7) Basophils # (Auto) 0.0 x10^3/uL (0.0-0.2) Sodium Level 142 mmol/L (136-145) Potassium Level 3.9 mmol/L (3.5-5.1) Chloride Level 108 mmol/L (98-107) H Carbon Dioxide Level 25 mmol/L (21-32) Anion Gap 9 (6-14) Blood Urea Nitrogen 20 mg/dL (7-20) Creatinine 0.7 mg/dL (0.6-1.0) Estimated GFR (Cockcroft-Gault) 83.0 Glucose Level 157 mg/dL (70-99) H Calcium Level 8.2 mg/dL (8.5-10.1) L Magnesium Level 2.1 mg/dL (1.8-2.4) Laboratory Tests 05/15/21 05:30 Laboratory Tests 05/15/21 05:30 Laboratory Tests 05/15/21 05:30 Physical Exam: GENERAL: No apparent distress. Alert and oriented. HEENT: Head normocephalic, atraumatic. NECK: Supple LUNGS: Clear to auscultation. HEART: RRR, S1, S2 present, pulses intact ABDOMEN: Soft, positive bowel sounds. EXTREMITIES: No cyanosis or edema. NEUROLOGIC: Normal speech, normal tone PSYCHIATRIC: Normal affect, normal mood. SKIN: No ulceration. Assessment & Plan: A/P 71y with abd pain, wt loss, liver lesions, and acute cholecystitis 1.) Pelvic mass suspected fibroids on CT. 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 2.) Abd pain unlikely related to pelvic findings, per other teams 3.) Liver lesions - Elevated LFTs, per Gen Surg and GI. Plans for IR bx today 4.) Acute cholecystitis, possible choledocholithiasis per GI and Surg 5.) Chronic dysphagia - h/o heartburn 6.) Degenerative change involving the lumbar spine 7.) Colonic diverticulosis. 8.) Potential atypical pneumonia on abx 9.) Will cont to follow EDGAR LOPEZ MD May 15, 2021 10:22
--- NOTE | 2021-05-15 11:17 | PDOC ---
[facility] PROGRESS NOTE Date of Service DOS: DATE: 05/15/21 TIME: 11:13 Chief Complaint Chief Complaint Acute cholecystitis, possible choledocholithiasis Transaminitis related to liver lesion and also possibly biliary obstruction from cholelithiasis Innumerable hypodense lesions throughout the liver measuring up to 4.3 cm, possible malignancy 1.3 cm pleural-based nodular opacity with surrounding groundglass within the right middle lobe, possibly infectious or inflammatory in etiology Degenerative change involving the lumbar spine, resulting in stenosis as described above Small to moderate amount of pelvic free fluid and suspected uterine fibroids. Colonic diverticulosis. Admit to hospitalist service for further management General surgery consult for acute cholecystitis Continue empiric IV antibiotics to cover for cholecystitis and possible atypical right middle lobe pneumonia Keep n.p.o. Continue IV fluids GI consult for hepatic lesion management IR consult for liver biopsy OB consult for uterine fibroids Holding DVT prophylaxis until after procedure Protonix GI prophylaxis ADA diet CODE STATUS full Discussed with RN and SW Disposition inpatient management as above DPOA: Daughter History of Present Illness History of Present Illness History obtained from discussion with the ED physician and chart review Patient is a 71-year-old female with past medical history of GERD, diet- controlled diabetes and dyslipidemia not on any currently on any medications who comes into the ED with her daughter with complaints of right upper quadrant pain that is progressively gotten worse in the past month and a half. 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 Patient has had weight loss of 50 pounds in the last 3 months. Patient is only able to tolerate some foods that are thickened and pured but is unable to just drink clear water because it gives her choking sensation. Denies any odynophagia or coughing spells. Abdominal pain is in explained as right upper quadrant and radiates to her back and now she has lower back pain as well. Patient also endorses some nausea and vomiting and loss of appetite. She also endorses some bloating after eating. Denies any fevers, hematemesis, melena, shortness of breath, chest pain or palpitations. Of note, patient was actually scheduled for a liver biopsy for a liver lesion that was seen on MRI done by gastroenterology, Dr. Martinez. Patient was also scheduled for a follow-up on May 26, 202105/14 Patient evaluated and examined at bedside. Still complaining of some pain controlled with current meds. Appears planning for liver biopsy tomorrow. Gynecology consulted. 05/15 Patient evaluated examined at bedside. Pain well controlled with current meds. Quite nervous about the biopsy and entire situation overall. Liver biopsy today. Should these liver masses be malignant unsure exactly what the primary source is, discussed this with Dr. Solomon. Will discuss with other consulting teams. Will follow up with patient after biopsy Vitals/I&O Vitals/I&O: Vital Signs Date Time Temp Pulse Resp B/P (MAP) Pulse Ox O2 Delivery O2 Flow Rate FiO2 05/15/21 09:21 Room Air 05/15/21 07:00 98.8 57 18 113/55 (74) 96 98.8 I & O 05/14/21 05/14/21 05/15/21 15:00 23:00 07:00 Intake Total 50 ml 2121 ml Output Total 700 ml Balance 50 ml 2121 ml -700 ml Physical Exam General: Cooperative, No acute distress, Other (thin) Heart: Regular rate, Normal S1, Normal S2 Abdomen: Soft, Other (ND, ttp upper abdomen) Extremities: No clubbing, No cyanosis Skin: No rashes, No breakdown Labs Labs: Laboratory Tests Test 05/15/21 05:30 White Blood Count 6.8 x10^3/uL (4.0-11.0) Red Blood Count 3.41 x10^6/uL (3.50-5.40) Hemoglobin 10.4 g/dL (12.0-15.5) Hematocrit 30.9 % (36.0-47.0) Mean Corpuscular Volume 91 fL (79-100) Mean Corpuscular Hemoglobin 31 pg (25-35) Mean Corpuscular Hemoglobin Concent 34 g/dL (31-37) Red Cell Distribution Width 14.6 % (11.5-14.5) Platelet Count 190 x10^3/uL (140-400) Neutrophils (%) (Auto) 76 % (31-73) Lymphocytes (%) (Auto) 11 % (24-48) Monocytes (%) (Auto) 11 % (0-9) Eosinophils (%) (Auto) 2 % (0-3) Basophils (%) (Auto) 1 % (0-3) Neutrophils # (Auto) 5.1 x10^3/uL (1.8-7.7) Lymphocytes # (Auto) 0.7 x10^3/uL (1.0-4.8) Monocytes # (Auto) 0.8 x10^3/uL (0.0-1.1) Eosinophils # (Auto) 0.1 x10^3/uL (0.0-0.7) Basophils # (Auto) 0.0 x10^3/uL (0.0-0.2) Sodium Level 142 mmol/L (136-145) Potassium Level 3.9 mmol/L (3.5-5.1) Chloride Level 108 mmol/L (98-107) Carbon Dioxide Level 25 mmol/L (21-32) Anion Gap 9 (6-14) Blood Urea Nitrogen 20 mg/dL (7-20) Creatinine 0.7 mg/dL (0.6-1.0) Estimated GFR (Cockcroft-Gault) 83.0 Glucose Level 157 mg/dL (70-99) Calcium Level 8.2 mg/dL (8.5-10.1) Magnesium Level 2.1 mg/dL (1.8-2.4) Assessment and Plan Assessmemt and Plan Problems Medical Problems: (1) Acute cholecystitis Status: Acute (2) Lesion of liver Status: Acute (3) Transaminitis Status: Acute Comment Review of Relevant I have reviewed the following items jerry (where applicable) has been applied. Medications: Current Medications Medications (Trade) Dose Ordered Sig/Flor Route PRN Reason Start Time Stop Time Status Last Admin Dose Admin Amino Acids/ Electrolytes/ Dextrose 1,000 ml @ 80 mls/hr [id number] IV 05/14/21 13:00 05/15/21 02:25 Justifications for Admission Other Justification Acute cholecystitis, dysphagia ROLANDO BAUTISTA MD May 15, 2021 11:17
[2021-05-15] MEDS ORDERED: fentaNYL PF VIAL 100 MCG/2 ML VIAL ONE (12:53)
[2021-05-15] MEDS ORDERED: LIDOCAINE WITH 8.4% SOD BICARB 3 ML DISP.SYRIN. ONE (12:53)
[2021-05-15] MEDS ORDERED: MIDAZOLAM HCL/PF 2 MG/2 ML VIAL. ONE (12:53)
[2021-05-15] MEDS ORDERED: GELATIN SPONGE SIZE 12-7MM SPONGE. ONE (12:53)
[2021-05-15] MEDS ORDERED: fentaNYL PF VIAL 100 MCG/2 ML VIAL IV ONE (13:45)
[2021-05-15] MEDS ORDERED: LIDOCAINE WITH 8.4% SOD BICARB 3 ML DISP.SYRIN. IJ ONE (13:45)
[2021-05-15] MEDS ORDERED: MIDAZOLAM HCL/PF 2 MG/2 ML VIAL. IV ONE (13:45)
[2021-05-15] MEDS ORDERED: GELATIN SPONGE SIZE 12-7MM SPONGE. TP ONE (13:45)
[2021-05-15] MEDS: ENOXAPARIN 40 MG/0.4 ML SYRINGE. SQ SCH (15:25)
--- NOTE | 2021-05-15 15:38 | RAD ---
Ultrasound-guided biopsy,, left liver lesions 05/15/2021 INDICATION: Diffuse hepatic lesions, uncertain etiology Consent: The procedure was explained in its entirety to the patient or the patients designated repres entative by a member of the treatment team, including a discussion of the risks, benefits and commonl y accepted alternatives to the procedure, as well as the expected consequences of no therapy whatsoev er. Discussion of the risks included, but was not limited to, those that are most frequent and thos e that are rare but possibly severe or life-threatening, as well as the possibility of unforeseen com plications. The anterior abdomen was draped using sterile barrier technique. Ultrasound evaluation demonstrates d iffuse heterogeneity of the left hepatic lobe consistent with extensive infiltrating lesion seen on p rior CT scan. 1% lidocaine was administered for local anesthesia. A 17-gauge needle was advanced into the involved liver core biopsy samples were obtained. Gelfoam embolization of the biopsy tract was p erformed as the guiding needle was removed. Repeat ultrasound demonstrates expected biopsy changes. M anual pressure was held. Sterile dressings were applied. Sedation: The procedure was performed under conscious sedation including continuous cardiopulmonary m onitoring via a dedicated sedation nurse. [id number] sedation time: 25 minutes Impression: Ultrasound-guided biopsy, left lower: Electronically signed by: Braden Brown MD (05/15/2021 3:35 PM) [id number]
--- NOTE | 2021-05-15 20:33 | PDOC ---
SURGICAL PROGRESS NOTE DATE: 05/15/21 TIME: 20:32 Subjective Pt without new c/o Vital Signs Vital Signs Date Time Temp Pulse Resp B/P (MAP) Pulse Ox O2 Delivery O2 Flow Rate FiO2 05/15/21 19:43 98.4 60 16 112/55 (74) 95 Room Air 98.4 05/15/21 13:49 2.0 I&O Intake and Output 05/15/21 07:00 Intake Total 2171 ml Output Total 700 ml Balance 1471 ml Intake Oral 0 ml IV Total 2171 ml Output Urine Total 700 ml General: Alert, Oriented X3, Cooperative, No acute distress Abdomen: Soft, No tenderness Labs Laboratory Tests Test 05/14/21 07:20 05/15/21 05:30 White Blood Count 6.8 x10^3/uL (4.0-11.0) 6.8 x10^3/uL (4.0-11.0) Red Blood Count 3.69 x10^6/uL (3.50-5.40) 3.41 x10^6/uL (3.50-5.40) Hemoglobin 11.1 g/dL (12.0-15.5) 10.4 g/dL (12.0-15.5) Hematocrit 34.1 % (36.0-47.0) 30.9 % (36.0-47.0) Mean Corpuscular Volume 92 fL (79-100) 91 fL (79-100) Mean Corpuscular Hemoglobin 30 pg (25-35) 31 pg (25-35) Mean Corpuscular Hemoglobin Concent 33 g/dL (31-37) 34 g/dL (31-37) Red Cell Distribution Width 14.7 % (11.5-14.5) 14.6 % (11.5-14.5) Platelet Count 200 x10^3/uL (140-400) 190 x10^3/uL (140-400) Neutrophils (%) (Auto) 79 % (31-73) 76 % (31-73) Lymphocytes (%) (Auto) 10 % (24-48) 11 % (24-48) Monocytes (%) (Auto) 9 % (0-9) 11 % (0-9) Eosinophils (%) (Auto) 1 % (0-3) 2 % (0-3) Basophils (%) (Auto) 1 % (0-3) 1 % (0-3) Neutrophils # (Auto) 5.4 x10^3/uL (1.8-7.7) 5.1 x10^3/uL (1.8-7.7) Lymphocytes # (Auto) 0.7 x10^3/uL (1.0-4.8) 0.7 x10^3/uL (1.0-4.8) Monocytes # (Auto) 0.6 x10^3/uL (0.0-1.1) 0.8 x10^3/uL (0.0-1.1) Eosinophils # (Auto) 0.1 x10^3/uL (0.0-0.7) 0.1 x10^3/uL (0.0-0.7) Basophils # (Auto) 0.0 x10^3/uL (0.0-0.2) 0.0 x10^3/uL (0.0-0.2) Sodium Level 143 mmol/L (136-145) 142 mmol/L (136-145) Potassium Level 3.8 mmol/L (3.5-5.1) 3.9 mmol/L (3.5-5.1) Chloride Level 106 mmol/L (98-107) 108 mmol/L (98-107) Carbon Dioxide Level 20 mmol/L (21-32) 25 mmol/L (21-32) Anion Gap 17 (6-14) 9 (6-14) Blood Urea Nitrogen 16 mg/dL (7-20) 20 mg/dL (7-20) Creatinine 0.6 mg/dL (0.6-1.0) 0.7 mg/dL (0.6-1.0) Estimated GFR (Cockcroft-Gault) 99.1 83.0 BUN/Creatinine Ratio 27 (6-20) Glucose Level 54 mg/dL (70-99) 157 mg/dL (70-99) Calcium Level 8.3 mg/dL (8.5-10.1) 8.2 mg/dL (8.5-10.1) Phosphorus Level 4.7 mg/dL (2.6-4.7) Magnesium Level 1.9 mg/dL (1.8-2.4) 2.1 mg/dL (1.8-2.4) Total Bilirubin 1.3 mg/dL (0.2-1.0) Aspartate Amino Transf (AST/SGOT) 259 U/L (15-37) Alanine Aminotransferase (ALT/SGPT) 192 U/L (14-59) Alkaline Phosphatase 841 U/L (46-116) Total Protein 6.0 g/dL (6.4-8.2) Albumin 2.6 g/dL (3.4-5.0) Albumin/Globulin Ratio 0.8 (1.0-1.7) Laboratory Tests Test 05/15/21 05:30 White Blood Count 6.8 x10^3/uL (4.0-11.0) Red Blood Count 3.41 x10^6/uL (3.50-5.40) Hemoglobin 10.4 g/dL (12.0-15.5) Hematocrit 30.9 % (36.0-47.0) Mean Corpuscular Volume 91 fL (79-100) Mean Corpuscular Hemoglobin 31 pg (25-35) Mean Corpuscular Hemoglobin Concent 34 g/dL (31-37) Red Cell Distribution Width 14.6 % (11.5-14.5) Platelet Count 190 x10^3/uL (140-400) Neutrophils (%) (Auto) 76 % (31-73) Lymphocytes (%) (Auto) 11 % (24-48) Monocytes (%) (Auto) 11 % (0-9) Eosinophils (%) (Auto) 2 % (0-3) Basophils (%) (Auto) 1 % (0-3) Neutrophils # (Auto) 5.1 x10^3/uL (1.8-7.7) Lymphocytes # (Auto) 0.7 x10^3/uL (1.0-4.8) Monocytes # (Auto) 0.8 x10^3/uL (0.0-1.1) Eosinophils # (Auto) 0.1 x10^3/uL (0.0-0.7) Basophils # (Auto) 0.0 x10^3/uL (0.0-0.2) Sodium Level 142 mmol/L (136-145) Potassium Level 3.9 mmol/L (3.5-5.1) Chloride Level 108 mmol/L (98-107) Carbon Dioxide Level 25 mmol/L (21-32) Anion Gap 9 (6-14) Blood Urea Nitrogen 20 mg/dL (7-20) Creatinine 0.7 mg/dL (0.6-1.0) Estimated GFR (Cockcroft-Gault) 83.0 Glucose Level 157 mg/dL (70-99) Calcium Level 8.2 mg/dL (8.5-10.1) Magnesium Level 2.1 mg/dL (1.8-2.4) Problem List Problems Medical Problems: (1) Acute cholecystitis Status: Acute (2) Lesion of liver Status: Acute (3) Transaminitis Status: Acute Assessment/Plan liver masses await bx results Justicifation of Admission Dx: Justifications for Admission: Justification of Admission Dx: Yes SCOOBY SULLIVAN MD May 15, 2021 20:33
[2021-05-16] MEDS: AMPICILLIN/SULBACTAM 1.5 GM in IV NORMAL SALINE 50ML 50 ML IV SCH ×5 (00:44→23:27)
[2021-05-16 03:00] LABS: BASO # 0.1 x10^3/uL (0.0-0.2); BASO % 1 % (0-3); EOS # 0.1 x10^3/uL (0.0-0.7); EOS % 1 % (0-3); HEMATOCRIT 34.4 % (36.0-47.0); HEMOGLOBIN 11.5 g/dL (12.0-15.5); LYMPH # 1.1 x10^3/uL (1.0-4.8); LYMPH % 12 % (24-48); MEAN CORPUSCULAR HEMOGLOBIN 30 pg (25-35); MEAN CORPUSCULAR HGB CONC 33 g/dL (31-37); MEAN CORPUSCULAR VOLUME 91 fL (79-100); MONO % 10 % (0-9); NEUT # 6.9 x10^3/uL (1.8-7.7); NEUT % 76 % (31-73); PLATELET COUNT 198 x10^3/uL (140-400); RED BLOOD COUNT 3.78 x10^6/uL (3.50-5.40); RED CELL DISTRIBUTION WIDTH 14.7 % (11.5-14.5); WHITE BLOOD COUNT 9.1 x10^3/uL (4.0-11.0)
[2021-05-16 03:12] LABS: CALCIUM 8.3 mg/dL (8.5-10.1); CREATININE 0.7 mg/dL (0.6-1.0); MAGNESIUM 1.9 mg/dL (1.8-2.4); POTASSIUM 4.4 mmol/L (3.5-5.1)
[2021-05-16 03:52] VITALS: BP 105/49
[2021-05-16] MEDS: IV NORMAL SALINE 1000ML BAG 1,000 ML IV SCH (04:15)
[2021-05-16 07:00] VITALS: BP 107/51
[2021-05-16] MEDS: AA 4.25 %/CALCIUM/LYTES/D5W 1,000 ML IV SCH ×2 (07:28→23:27)
[2021-05-16] MEDS: PANTOPRAZOLE IV PUSH 40 MG VIAL. IVP SCH (07:30)
[2021-05-16] MEDS ORDERED: BARIUM SULFATE 40% (APPLE) 148 GM PWD. PO ONE (08:00)
[2021-05-16] MEDS ORDERED: SIMETHICONE/SOD BICARB/CITRIC ACID PACKET. PO ONE (08:15)
[2021-05-16] MEDS ORDERED: BARIUM SULFATE 60% 355 ML SUSP PO ONE (08:15)
[2021-05-16] MEDS ORDERED: BARIUM SULFATE 340 GM SUSPENSION. PO ONE (08:15)
--- NOTE | 2021-05-16 09:14 | PDOC ---
ASSISTANT [employer] MECH[employer]IC PROGRESS NOTE Date of Service: DATE: 05/16/21 TIME: 09:14 Subjective: No interval changes Objective: Vital Signs: Vital Signs Date Time Temp Pulse Resp B/P (MAP) Pulse Ox O2 Delivery O2 Flow Rate FiO2 05/15/21 07:00 98.8 57 18 113/55 (74) 96 98.8 05/15/21 08:00 Room Air 05/15/21 13:23 2.0 Vital Signs Date Time Temp Pulse Resp B/P (MAP) Pulse Ox O2 Delivery O2 Flow Rate FiO2 05/16/21 07:34 Room Air 05/16/21 07:00 98.5 55 16 107/51 (69) 94 98.5 05/15/21 20:00 2.0 Labs: Laboratory Tests Test 05/16/21 02:40 White Blood Count 9.1 x10^3/uL (4.0-11.0) Red Blood Count 3.78 x10^6/uL (3.50-5.40) Hemoglobin 11.5 g/dL (12.0-15.5) L Hematocrit 34.4 % (36.0-47.0) L Mean Corpuscular Volume 91 fL (79-100) Mean Corpuscular Hemoglobin 30 pg (25-35) Mean Corpuscular Hemoglobin Concent 33 g/dL (31-37) Red Cell Distribution Width 14.7 % (11.5-14.5) H Platelet Count 198 x10^3/uL (140-400) Neutrophils (%) (Auto) 76 % (31-73) H Lymphocytes (%) (Auto) 12 % (24-48) L Monocytes (%) (Auto) 10 % (0-9) H Eosinophils (%) (Auto) 1 % (0-3) Basophils (%) (Auto) 1 % (0-3) Neutrophils # (Auto) 6.9 x10^3/uL (1.8-7.7) Lymphocytes # (Auto) 1.1 x10^3/uL (1.0-4.8) Monocytes # (Auto) 1.0 x10^3/uL (0.0-1.1) Eosinophils # (Auto) 0.1 x10^3/uL (0.0-0.7) Basophils # (Auto) 0.1 x10^3/uL (0.0-0.2) Sodium Level 141 mmol/L (136-145) Potassium Level 4.4 mmol/L (3.5-5.1) Chloride Level 107 mmol/L (98-107) Carbon Dioxide Level 29 mmol/L (21-32) Anion Gap 5 (6-14) L Blood Urea Nitrogen 21 mg/dL (7-20) H Creatinine 0.7 mg/dL (0.6-1.0) Estimated GFR (Cockcroft-Gault) 83.0 Glucose Level 136 mg/dL (70-99) H Calcium Level 8.3 mg/dL (8.5-10.1) L Magnesium Level 1.9 mg/dL (1.8-2.4) Laboratory Tests 05/16/21 02:40 Laboratory Tests 05/16/21 02:40 Laboratory Tests 05/16/21 02:40 Physical Exam: GENERAL: No apparent distress. Alert and oriented. HEENT: Head normocephalic, atraumatic. NECK: Supple LUNGS: Clear to auscultation. HEART: RRR, S1, S2 present, pulses intact ABDOMEN: Soft, positive bowel sounds. EXTREMITIES: No cyanosis or edema. NEUROLOGIC: Normal speech, normal tone PSYCHIATRIC: Normal affect, normal mood. SKIN: No ulceration. Assessment & Plan: A/P 71y with abd pain, wt loss, liver lesions, and acute cholecystitis 1.) Pelvic mass suspected fibroids on CT. Can consider additional imaging (u/s), since concerns of malignancy to r/o primary title i math tutor source. 2.) Abd pain unlikely related to pelvic findings, per other teams 3.) Liver lesions - Elevated LFTs, per Gen Surg and GI. Awaiting path of bx 4.) Acute cholecystitis, possible choledocholithiasis per GI and Surg 5.) Chronic dysphagia - h/o heartburn 6.) Degenerative change involving the lumbar spine 7.) Colonic diverticulosis. 8.) Potential atypical pneumonia on abx 9.) Will cont to follow EDGAR LOPEZ MD May 16, 2021 09:14
--- NOTE | 2021-05-16 10:40 | RAD ---
EXAM: Video swallow evaluation. HISTORY: Dysphagia. Weight loss. TECHNIQUE: Fluoroscopic imaging was performed during the oral administration of barium contrast of va rying consistencies in coordination with a speech pathologist. Video fluoroscopy was performed. 0 flu oroscopic spot images were obtained. The total fluoroscopy time was 3.8 minutes. COMPARISON: None. FINDINGS: The oral phase of swallowing is abnormal. There is delayed initiation of swallowing and poo r oral bolus formation and propagation. There is no evidence of aspiration or penetration. IMPRESSION: Abnormal oral phase of swallowing. There is no evidence of aspiration or penetration. Ple ase refer to the separate report by the speech pathologist for clinical recommendations. Electronically signed by: Willow Villanueva MD (05/16/2021 10:38 AM) [id number]
--- NOTE | 2021-05-16 10:51 | NUR ---
SW following. Discussed with RN, awaiting biopsy results. Pt having a barium swallow and a video swallow today. SW will continue to follow.
--- NOTE | 2021-05-16 10:52 | PDOC ---
Date of Service: DATE: 05/16/21 TIME: 10:43 Subjective: Subjective: Daughter is frustrated because someone came into the room and did not use the construction specialist phone. Pt gets anxious. Was told she could not have breakfast because of swallow tests - daughter says no sign on the door and they didn't know about this. No results of previous esophagram received but she again describes pt having difficult swallowing contrast [facility] - says test was stopped early and the doctor said he would send results to her primary doctor. After EGD, her throat was sore - painful swallowing. She also says after EGD and colonoscopy (at some point), she ate a whole plate of food. She has not been able to eat here due to awaiting testing - unclear what swallowing status is now or if esophageal dilation helped. Daughter feels anxiety plays a role. They are agreeable to videoswallow, etc. today as I previously d/w FORM TAMPER. Objective: Objective: Called by nurse earlier this morning before I saw - daughter upset, says pt can't swallow contrast and only can swallow food. Vital Signs: Vital Signs Date Time Temp Pulse Resp B/P (MAP) Pulse Ox O2 Delivery O2 Flow Rate FiO2 05/16/21 07:34 Room Air 05/16/21 07:00 98.5 55 16 107/51 (69) 94 98.5 05/15/21 20:00 2.0 Labs: Laboratory Tests Test 05/16/21 02:40 White Blood Count 9.1 x10^3/uL Red Blood Count 3.78 x10^6/uL Hemoglobin 11.5 g/dL Hematocrit 34.4 % Mean Corpuscular Volume 91 fL Mean Corpuscular Hemoglobin 30 pg Mean Corpuscular Hemoglobin Concent 33 g/dL Red Cell Distribution Width 14.7 % Platelet Count 198 x10^3/uL Neutrophils (%) (Auto) 76 % Lymphocytes (%) (Auto) 12 % Monocytes (%) (Auto) 10 % Eosinophils (%) (Auto) 1 % Basophils (%) (Auto) 1 % Neutrophils # (Auto) 6.9 x10^3/uL Lymphocytes # (Auto) 1.1 x10^3/uL Monocytes # (Auto) 1.0 x10^3/uL Eosinophils # (Auto) 0.1 x10^3/uL Basophils # (Auto) 0.1 x10^3/uL Sodium Level 141 mmol/L Potassium Level 4.4 mmol/L Chloride Level 107 mmol/L Carbon Dioxide Level 29 mmol/L Anion Gap 5 Blood Urea Nitrogen 21 mg/dL Creatinine 0.7 mg/dL Estimated GFR (Cockcroft-Gault) 83.0 Glucose Level 136 mg/dL Calcium Level 8.3 mg/dL Magnesium Level 1.9 mg/dL Imaging: Videoswallow IMPRESSION: Abnormal oral phase of swallowing. There is no evidence of aspiration or penetration. Please refer to the separate report by the speech pathologist for clinical recommendations. PE: GEN: NAD - sitting in corner of room by window LUNGS: room air HEART: RR per charting ABD: non-distended NEURO/PSYCH: A & O 3 - Pashto speaking, daughter translates A/P: Upper abdominal pain, weight loss, chronic dysphagia Abnormal LFTs, liver lesions, abnormal GB imaging - s/p liver biopsy 05/15/21 (results pending) -- Time spent talking with daughter. Will follow-up on videoswallow results, etc. Expect liver biopsy results to take awhile - may need to consider discharge and follow-up as outpt if pain managed and able to take PO. Justicifation of Admission Dx: Justifications for Admission: Justification of Admission Dx: Yes HEDY ANGELES May 16, 2021 10:52
[2021-05-16 11:00] VITALS: BP 116/53
--- NOTE | 2021-05-16 13:05 | PDOC ---
MICHELLE GIFFORD CHEF PASSENGER VESSEL 05/16/21 1305: SURGICAL PROGRESS NOTE DATE: 05/16/21 TIME: 13:04 Subjective in shower, spoke with daughter passed swallow denies abdominal pain Vital Signs Vital Signs Date Time Temp Pulse Resp B/P (MAP) Pulse Ox O2 Delivery O2 Flow Rate FiO2 05/16/21 11:00 98.2 64 18 116/53 (74) 96 98.2 05/16/21 07:34 Room Air 05/15/21 20:00 2.0 I&O Intake and Output 05/16/21 07:00 Intake Total 1250 ml Output Total 900 ml Balance 350 ml IV Total 1250 ml Output Urine Total 900 ml # Voids 2 Labs Laboratory Tests Test 05/15/21 05:30 05/16/21 02:40 White Blood Count 6.8 x10^3/uL (4.0-11.0) 9.1 x10^3/uL (4.0-11.0) Red Blood Count 3.41 x10^6/uL (3.50-5.40) 3.78 x10^6/uL (3.50-5.40) Hemoglobin 10.4 g/dL (12.0-15.5) 11.5 g/dL (12.0-15.5) Hematocrit 30.9 % (36.0-47.0) 34.4 % (36.0-47.0) Mean Corpuscular Volume 91 fL (79-100) 91 fL (79-100) Mean Corpuscular Hemoglobin 31 pg (25-35) 30 pg (25-35) Mean Corpuscular Hemoglobin Concent 34 g/dL (31-37) 33 g/dL (31-37) Red Cell Distribution Width 14.6 % (11.5-14.5) 14.7 % (11.5-14.5) Platelet Count 190 x10^3/uL (140-400) 198 x10^3/uL (140-400) Neutrophils (%) (Auto) 76 % (31-73) 76 % (31-73) Lymphocytes (%) (Auto) 11 % (24-48) 12 % (24-48) Monocytes (%) (Auto) 11 % (0-9) 10 % (0-9) Eosinophils (%) (Auto) 2 % (0-3) 1 % (0-3) Basophils (%) (Auto) 1 % (0-3) 1 % (0-3) Neutrophils # (Auto) 5.1 x10^3/uL (1.8-7.7) 6.9 x10^3/uL (1.8-7.7) Lymphocytes # (Auto) 0.7 x10^3/uL (1.0-4.8) 1.1 x10^3/uL (1.0-4.8) Monocytes # (Auto) 0.8 x10^3/uL (0.0-1.1) 1.0 x10^3/uL (0.0-1.1) Eosinophils # (Auto) 0.1 x10^3/uL (0.0-0.7) 0.1 x10^3/uL (0.0-0.7) Basophils # (Auto) 0.0 x10^3/uL (0.0-0.2) 0.1 x10^3/uL (0.0-0.2) Sodium Level 142 mmol/L (136-145) 141 mmol/L (136-145) Potassium Level 3.9 mmol/L (3.5-5.1) 4.4 mmol/L (3.5-5.1) Chloride Level 108 mmol/L (98-107) 107 mmol/L (98-107) Carbon Dioxide Level 25 mmol/L (21-32) 29 mmol/L (21-32) Anion Gap 9 (6-14) 5 (6-14) Blood Urea Nitrogen 20 mg/dL (7-20) 21 mg/dL (7-20) Creatinine 0.7 mg/dL (0.6-1.0) 0.7 mg/dL (0.6-1.0) Estimated GFR (Cockcroft-Gault) 83.0 83.0 Glucose Level 157 mg/dL (70-99) 136 mg/dL (70-99) Calcium Level 8.2 mg/dL (8.5-10.1) 8.3 mg/dL (8.5-10.1) Magnesium Level 2.1 mg/dL (1.8-2.4) 1.9 mg/dL (1.8-2.4) Laboratory Tests Test 05/16/21 02:40 White Blood Count 9.1 x10^3/uL (4.0-11.0) Red Blood Count 3.78 x10^6/uL (3.50-5.40) Hemoglobin 11.5 g/dL (12.0-15.5) Hematocrit 34.4 % (36.0-47.0) Mean Corpuscular Volume 91 fL (79-100) Mean Corpuscular Hemoglobin 30 pg (25-35) Mean Corpuscular Hemoglobin Concent 33 g/dL (31-37) Red Cell Distribution Width 14.7 % (11.5-14.5) Platelet Count 198 x10^3/uL (140-400) Neutrophils (%) (Auto) 76 % (31-73) Lymphocytes (%) (Auto) 12 % (24-48) Monocytes (%) (Auto) 10 % (0-9) Eosinophils (%) (Auto) 1 % (0-3) Basophils (%) (Auto) 1 % (0-3) Neutrophils # (Auto) 6.9 x10^3/uL (1.8-7.7) Lymphocytes # (Auto) 1.1 x10^3/uL (1.0-4.8) Monocytes # (Auto) 1.0 x10^3/uL (0.0-1.1) Eosinophils # (Auto) 0.1 x10^3/uL (0.0-0.7) Basophils # (Auto) 0.1 x10^3/uL (0.0-0.2) Sodium Level 141 mmol/L (136-145) Potassium Level 4.4 mmol/L (3.5-5.1) Chloride Level 107 mmol/L (98-107) Carbon Dioxide Level 29 mmol/L (21-32) Anion Gap 5 (6-14) Blood Urea Nitrogen 21 mg/dL (7-20) Creatinine 0.7 mg/dL (0.6-1.0) Estimated GFR (Cockcroft-Gault) 83.0 Glucose Level 136 mg/dL (70-99) Calcium Level 8.3 mg/dL (8.5-10.1) Magnesium Level 1.9 mg/dL (1.8-2.4) Problem List Problems Medical Problems: (1) Acute cholecystitis Status: Acute (2) Lesion of liver Status: Acute (3) Transaminitis Status: Acute Assessment/Plan bx pending, if eating--possible dc home and FU on bx results, possible adriano planning Justicifation of Admission Dx: Justifications for Admission: Justification of Admission Dx: Yes SCOOBY SULLIVAN MD 05/16/21 1429: SURGICAL PROGRESS NOTE Assessment/Plan Pt seen and examined. Agree with Ms. Gifford's note Pt with c/o RUQ pain, especially with movement OK to plan d/c in AM and f/u pending bx. MICHELLE GIFFORD CHEF PASSENGER VESSEL May 16, 2021 13:05 SCOOBY SULLIVAN MD May 16, 2021 14:29
[2021-05-16] MEDS: MORPHINE SULFATE 2 MG/ML INJ. IV PRN (13:34)
[2021-05-16] MEDS: ENOXAPARIN 40 MG/0.4 ML SYRINGE. SQ SCH (13:39)
[2021-05-16 15:00] VITALS: BP 121/58
--- NOTE | 2021-05-16 15:41 | PDOC ---
[employer] PROGRESS NOTE Date of Service DOS: DATE: 05/16/21 TIME: 15:40 Chief Complaint Chief Complaint Acute cholecystitis, possible choledocholithiasis Transaminitis related to liver lesion and also possibly biliary obstruction from cholelithiasis Innumerable hypodense lesions throughout the liver measuring up to 4.3 cm, possible malignancy 1.3 cm pleural-based nodular opacity with surrounding groundglass within the right middle lobe, possibly infectious or inflammatory in etiology Degenerative change involving the lumbar spine, resulting in stenosis as described above Small to moderate amount of pelvic free fluid and suspected uterine fibroids. Colonic diverticulosis. Admit to hospitalist service for further management General surgery consult for acute cholecystitis Continue empiric IV antibiotics to cover for cholecystitis and possible atypical right middle lobe pneumonia Keep n.p.o. Continue IV fluids GI consult for hepatic lesion management IR consult for liver biopsy OB consult for uterine fibroids Holding DVT prophylaxis until after procedure Protonix GI prophylaxis ADA diet CODE STATUS full Discussed with RN and SW Disposition inpatient management as above DPOA: Daughter History of Present Illness History of Present Illness History obtained from discussion with the ED physician and chart review Patient is a 71-year-old female with past medical history of GERD, diet- controlled diabetes and dyslipidemia not on any currently on any medications who comes into the ED with her daughter with complaints of right upper quadrant pain that is progressively gotten worse in the past month and a half. 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 Patient has had weight loss of 50 pounds in the last 3 months. Patient is only able to tolerate some foods that are thickened and pured but is unable to just drink clear water because it gives her choking sensation. Denies any odynophagia or coughing spells. Abdominal pain is in explained as right upper quadrant and radiates to her back and now she has lower back pain as well. Patient also endorses some nausea and vomiting and loss of appetite. She also endorses some bloating after eating. Denies any fevers, hematemesis, melena, shortness of breath, chest pain or palpitations. Of note, patient was actually scheduled for a liver biopsy for a liver lesion that was seen on MRI done by gastroenterology, Dr. Martinez. Patient was also scheduled for a follow-up on May 26, 202105/14 Patient evaluated and examined at bedside. Still complaining of some pain controlled with current meds. Appears planning for liver biopsy tomorrow. Gynecology consulted. 05/15 Patient evaluated examined at bedside. Pain well controlled with current meds. Quite nervous about the biopsy and entire situation overall. Liver biopsy today. Should these liver masses be malignant unsure exactly what the primary source is, discussed this with Dr. Solomon. Will discuss with other consulting teams. Will follow up with patient after biopsy 05/16 Patient evaluated and examined at bedside. Underwent biopsy yesterday and tolerated well. Interested in results I informed them that it would be likely a few days for this. Working on pain control. Can possibly DC in the morning with outpatient follow-up. Vitals/I&O Vitals/I&O: Vital Signs Date Time Temp Pulse Resp B/P (MAP) Pulse Ox O2 Delivery O2 Flow Rate FiO2 05/16/21 15:00 98.4 58 18 121/58 (79) 97 98.4 05/16/21 07:34 Room Air 05/15/21 20:00 2.0 I & O 05/15/21 05/15/21 05/16/21 15:00 23:00 07:00 Intake Total 1000 ml 250 ml Output Total 500 ml 400 ml Balance 1000 ml -250 ml -400 ml Physical Exam General: Alert, Oriented X3, Cooperative, No acute distress Heart: Regular rate, Normal S1, Normal S2 Abdomen: Soft, No tenderness Extremities: No clubbing, No cyanosis Skin: No rashes, No breakdown Labs Labs: Laboratory Tests Test 05/16/21 02:40 White Blood Count 9.1 x10^3/uL (4.0-11.0) Red Blood Count 3.78 x10^6/uL (3.50-5.40) Hemoglobin 11.5 g/dL (12.0-15.5) Hematocrit 34.4 % (36.0-47.0) Mean Corpuscular Volume 91 fL (79-100) Mean Corpuscular Hemoglobin 30 pg (25-35) Mean Corpuscular Hemoglobin Concent 33 g/dL (31-37) Red Cell Distribution Width 14.7 % (11.5-14.5) Platelet Count 198 x10^3/uL (140-400) Neutrophils (%) (Auto) 76 % (31-73) Lymphocytes (%) (Auto) 12 % (24-48) Monocytes (%) (Auto) 10 % (0-9) Eosinophils (%) (Auto) 1 % (0-3) Basophils (%) (Auto) 1 % (0-3) Neutrophils # (Auto) 6.9 x10^3/uL (1.8-7.7) Lymphocytes # (Auto) 1.1 x10^3/uL (1.0-4.8) Monocytes # (Auto) 1.0 x10^3/uL (0.0-1.1) Eosinophils # (Auto) 0.1 x10^3/uL (0.0-0.7) Basophils # (Auto) 0.1 x10^3/uL (0.0-0.2) Sodium Level 141 mmol/L (136-145) Potassium Level 4.4 mmol/L (3.5-5.1) Chloride Level 107 mmol/L (98-107) Carbon Dioxide Level 29 mmol/L (21-32) Anion Gap 5 (6-14) Blood Urea Nitrogen 21 mg/dL (7-20) Creatinine 0.7 mg/dL (0.6-1.0) Estimated GFR (Cockcroft-Gault) 83.0 Glucose Level 136 mg/dL (70-99) Calcium Level 8.3 mg/dL (8.5-10.1) Magnesium Level 1.9 mg/dL (1.8-2.4) Assessment and Plan Assessmemt and Plan Problems Medical Problems: (1) Acute cholecystitis Status: Acute (2) Lesion of liver Status: Acute (3) Transaminitis Status: Acute Comment Review of Relevant I have reviewed the following items jerry (where applicable) has been applied. Medications: Current Medications Medications (Trade) Dose Ordered Sig/Flor Route PRN Reason Start Time Stop Time Status Last Admin Dose Admin Barium Sulfate (Varibar Thin Liquid Apple) 148 gm 1X ONCE PO 05/16/21 08:00 05/16/21 08:01 DC 05/16/21 08:00 Justifications for Admission Other Justification Acute cholecystitis, dysphagia ROLANDO BAUTISTA MD May 16, 2021 15:41
[2021-05-16 19:00] VITALS: BP 111/56
[2021-05-16 23:00] VITALS: BP 103/49
[2021-05-17] MEDS: IV NORMAL SALINE 1000ML BAG 1,000 ML IV SCH (00:15)
[2021-05-17 03:00] VITALS: BP 110/51
[2021-05-17] MEDS: AA 4.25 %/CALCIUM/LYTES/D5W 1,000 ML IV SCH (03:30)
[2021-05-17] MEDS: AMPICILLIN/SULBACTAM 1.5 GM in IV NORMAL SALINE 50ML 50 ML IV SCH ×2 (05:41→12:03)
[2021-05-17 07:00] VITALS: BP 112/53
[2021-05-17] MEDS: MORPHINE SULFATE 2 MG/ML INJ. IV PRN ×2 (07:22→14:01)
[2021-05-17] MEDS: PANTOPRAZOLE IV PUSH 40 MG VIAL. IVP SCH (08:24)
--- NOTE | 2021-05-17 10:11 | PDOC ---
Date of Service: DATE: 05/17/21 TIME: 10:06 Subjective: Subjective: Having some pain - upper abdomen and left chest/breast - trying to eat some. H/o similar chest pain - unclear what aggravates, no change w/ eating or palpation. No stool since Mon. Objective: Objective: D/w Dr. Shaw. Vital Signs: Vital Signs Date Time Temp Pulse Resp B/P (MAP) Pulse Ox O2 Delivery O2 Flow Rate FiO2 05/17/21 08:21 95 Room Air 05/17/21 07:00 97.4 62 18 112/53 (72) 97.4 Labs: Laboratory Tests Test 05/16/21 21:23 Glucose (Fingerstick) 130 mg/dL Imaging: SERVICE OR WORK DISPATCHER Videoswallow Eval Preliminary Report: Pt demo's mod-severe oral dysphagia w/ prolonged manipulation of bolus in anterior oral cavity and piecemeal swallow resulting in delayed oral A-P transport. Prolonged oral phase did not negatively impact overall swallow s afety as premature spillage over base of tongue did not occur. Pt's dtr reported pt has had fear & anxiety related to swallowing for approx. 30 years after having esophageal problems that caused her to wake up coughing & choking during the night and also had associated difficulty swallowing as a result. Suspect current oral dysphagia may be of non-organic etiology as a reaction to past event given pt's hx, secondary behaviors during clinical eval, and current exam results. No penetration or aspiration observed. See full Videoswallow report in Interventions. RECOMMENDATIONS; Diet consistency as tolerated per pt and thin liquids. Would encourage pt to attempt soft or regular solids. Clinical loan associate consult to maximize nutrition w/ pt's limited PO intake. PE: GEN: NAD - sitting in chair, eating cream of wheat and crackers (few bites) LUNGS: CTAB HEART: RRR ABD: S/ND, epigastric discomfort NEURO/PSYCH: A & O 3 - daughter translates A/P: Upper abdominal pain, weight loss, oral dysphagia Abnormal LFTs, liver lesions, abnormal GB imaging - s/p liver biopsy 05/15/21 (results pending) -- Nurse aware of CP complaints - defer to primary. GI-mascorro would continue PPI, start Miralax if she wants, encourage PO as able. Okay to DC when okay with others and follow-up for liver biopsy results as outpt. Justicifation of Admission Dx: Justifications for Admission: Justification of Admission Dx: Yes HEDY ANGELES May 17, 2021 10:11
[2021-05-17] MEDS ORDERED: BISACODYL 5 MG TABLET.DR. PO PRN (10:15)
[2021-05-17] MEDS ORDERED: POLYETHYLENE GLYCOL 3350 17 GM PACKET. PO PRN (10:15)
--- NOTE | 2021-05-17 10:41 | NUR ---
SW following. Discussed with RN, pt from home, room air, low fat diet, COVID-19 negative. Pt's daughter wanting pt to go home today. Pt complaining of pain and is not eating very well. Plan for home once medically stable. RN advised no SW needs. SW will continue to follow.
[2021-05-17 11:00] VITALS: BP 114/51
[2021-05-17] MEDS ORDERED: POLYETHYLENE GLYCOL 3350 17 GM PACKET. PO SCH (11:00)
--- NOTE | 2021-05-17 12:42 | PDOC ---
SURGICAL PROGRESS NOTE DATE: 05/17/21 TIME: 12:41 Subjective some pain trying to eat more Vital Signs Vital Signs Date Time Temp Pulse Resp B/P (MAP) Pulse Ox O2 Delivery O2 Flow Rate FiO2 05/17/21 08:21 95 Room Air 05/17/21 07:00 97.4 62 18 112/53 (72) 97.4 I&O Intake and Output 05/17/21 07:00 Intake Total 600 ml Balance 600 ml Intake Oral 600 ml # Voids 3 General: Alert, Cooperative Abdomen: Soft, Other (ttp upper abdomen ) Labs Laboratory Tests Test 05/16/21 02:40 05/16/21 21:23 White Blood Count 9.1 x10^3/uL (4.0-11.0) Red Blood Count 3.78 x10^6/uL (3.50-5.40) Hemoglobin 11.5 g/dL (12.0-15.5) Hematocrit 34.4 % (36.0-47.0) Mean Corpuscular Volume 91 fL (79-100) Mean Corpuscular Hemoglobin 30 pg (25-35) Mean Corpuscular Hemoglobin Concent 33 g/dL (31-37) Red Cell Distribution Width 14.7 % (11.5-14.5) Platelet Count 198 x10^3/uL (140-400) Neutrophils (%) (Auto) 76 % (31-73) Lymphocytes (%) (Auto) 12 % (24-48) Monocytes (%) (Auto) 10 % (0-9) Eosinophils (%) (Auto) 1 % (0-3) Basophils (%) (Auto) 1 % (0-3) Neutrophils # (Auto) 6.9 x10^3/uL (1.8-7.7) Lymphocytes # (Auto) 1.1 x10^3/uL (1.0-4.8) Monocytes # (Auto) 1.0 x10^3/uL (0.0-1.1) Eosinophils # (Auto) 0.1 x10^3/uL (0.0-0.7) Basophils # (Auto) 0.1 x10^3/uL (0.0-0.2) Sodium Level 141 mmol/L (136-145) Potassium Level 4.4 mmol/L (3.5-5.1) Chloride Level 107 mmol/L (98-107) Carbon Dioxide Level 29 mmol/L (21-32) Anion Gap 5 (6-14) Blood Urea Nitrogen 21 mg/dL (7-20) Creatinine 0.7 mg/dL (0.6-1.0) Estimated GFR (Cockcroft-Gault) 83.0 Glucose Level 136 mg/dL (70-99) Calcium Level 8.3 mg/dL (8.5-10.1) Magnesium Level 1.9 mg/dL (1.8-2.4) Glucose (Fingerstick) 130 mg/dL (70-99) Laboratory Tests Test 05/16/21 21:23 Glucose (Fingerstick) 130 mg/dL (70-99) Problem List Problems Medical Problems: (1) Acute cholecystitis Status: Acute (2) Lesion of liver Status: Acute (3) Transaminitis Status: Acute Assessment/Plan FU in clinic with Dr Soliman Justicifation of Admission Dx: Justifications for Admission: Justification of Admission Dx: Yes MICHELLE GIFFORD NEUROLOGY SPECIALIST May 17, 2021 12:42
--- NOTE | 2021-05-17 13:53 | PDOC ---
[employer] PROGRESS NOTE Date of Service: DATE: 05/17/21 TIME: 13:53 Subjective: No interval changes Objective: Vital Signs: Vital Signs Date Time Temp Pulse Resp B/P (MAP) Pulse Ox O2 Delivery O2 Flow Rate FiO2 05/16/21 07:00 98.5 55 16 107/51 (69) 94 98.5 05/16/21 07:34 Room Air Vital Signs Date Time Temp Pulse Resp B/P (MAP) Pulse Ox O2 Delivery O2 Flow Rate FiO2 05/17/21 11:00 98.2 54 17 114/51 (72) 98 Room Air 98.2 Labs: Laboratory Tests Test 05/16/21 21:23 Glucose (Fingerstick) 130 mg/dL (70-99) H Physical Exam: GENERAL: No apparent distress. Alert and oriented. HEENT: Head normocephalic, atraumatic. NECK: Supple LUNGS: Clear to auscultation. HEART: RRR, S1, S2 present, pulses intact ABDOMEN: Soft, positive bowel sounds. EXTREMITIES: No cyanosis or edema. NEUROLOGIC: Normal speech, normal tone PSYCHIATRIC: Normal affect, normal mood. SKIN: No ulceration. Assessment & Plan: A/P 71y with abd pain, wt loss, liver lesions, and acute cholecystitis 1.) Pelvic mass suspected fibroids on CT. 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 2.) Abd pain unlikely related to pelvic findings, per other teams 3.) Liver lesions - Elevated LFTs, per Gen Surg and GI. Awaiting path of bx 4.) Acute cholecystitis, possible choledocholithiasis per GI and Surg 5.) Chronic dysphagia - h/o heartburn 6.) Degenerative change involving the lumbar spine 7.) Colonic diverticulosis. 8.) Potential atypical pneumonia on abx 9.) Will cont to follow EDGAR LOPEZ MD May 17, 2021 13:53
[2021-05-17] MEDS ORDERED: POLY17PO52 PO (13:54)
[2021-05-17] MEDS ORDERED: AMOX1TAB61 PO (13:54)
[2021-05-17] MEDS ORDERED: OXYC1TAB19 PO (13:54)
--- NOTE | 2021-05-17 13:58 | PDOC3 ---
[facility]-Discharge Summary Date of Admission: Date of Admission: May 13, 2021 Date of Discharge: Date of Discharge: May 17, 2021 Admission Diagnosis: Problems: (1) Lesion of liver (2) Acute cholecystitis Discharge Diagnosis: Discharge Diagnosis: Same Consults: Consults: Surgery GI gynecology Procedures: Procedures: Liver biopsy Hospital Course: Hospital Course: hief Complaint Acute cholecystitis, possible choledocholithiasis Transaminitis related to liver lesion and also possibly biliary obstruction from cholelithiasis Innumerable hypodense lesions throughout the liver measuring up to 4.3 cm, possible malignancy 1.3 cm pleural-based nodular opacity with surrounding groundglass within the right middle lobe, possibly infectious or inflammatory in etiology Degenerative change involving the lumbar spine, resulting in stenosis as described above Small to moderate amount of pelvic free fluid and suspected uterine fibroids. Colonic diverticulosis. Admit to hospitalist service for further management General surgery consult for acute cholecystitis Continue empiric IV antibiotics to cover for cholecystitis and possible atypical right middle lobe pneumonia Keep n.p.o. Continue IV fluids GI consult for hepatic lesion management IR consult for liver biopsy OB consult for uterine fibroids Holding DVT prophylaxis until after procedure Protonix GI prophylaxis ADA diet CODE STATUS full Discussed with RN and SW Disposition inpatient management as above DPOA: Daughter History of Present Illness History of Present Illness History obtained from discussion with the ED physician and chart review Patient is a 71-year-old female with past medical history of GERD, diet- controlled diabetes and dyslipidemia not on any currently on any medications who comes into the ED with her daughter with complaints of right upper quadrant pain that is progressively gotten worse in the past month and a half. 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 Patient has had weight loss of 50 pounds in the last 3 months. Patient is only able to tolerate some foods that are thickened and pured but is unable to just drink clear water because it gives her choking sensation. Denies any odynophagia or coughing spells. Abdominal pain is in explained as right upper quadrant and radiates to her back and now she has lower back pain as well. Patient also endorses some nausea and vomiting and loss of appetite. She also endorses some bloating after eating. Denies any fevers, hematemesis, melena, shortness of breath, chest pain or palpitations. Of note, patient was actually scheduled for a liver biopsy for a liver lesion that was seen on MRI done by gastroenterology, Dr. Martinez. Patient was also scheduled for a follow-up on May 26, 202105/14 Patient evaluated and examined at bedside. Still complaining of some pain controlled with current meds. Appears planning for liver biopsy tomorrow. Gynecology consulted. 05/15 Patient evaluated examined at bedside. Pain well controlled with current meds. Quite nervous about the biopsy and entire situation overall. Liver biopsy today. Should these liver masses be malignant unsure exactly what the primary source is, discussed this with Dr. Solomon. Will discuss with other consulting teams. Will follow up with patient after biopsy 05/16 Patient evaluated and examined at bedside. Underwent biopsy yesterday and tolerated well. Interested in results I informed them that it would be likely a few days for this. Working on pain control. Can possibly DC in the morning with outpatient follow-up. 05/17 Patient evaluated examined at bedside. Discussed case with GI and gynecology team. Liver biopsy results still pending. Possible primary of biliary origin? Either way patient's pain is controlled on current regimen and she is tolerating diet. Will discharge home today with follow-ups with GI and surgery plan. I spent greater than 30 minutes on the discharge of this patient 21 minutes advance care planning spent with this patient. Disposition: Disposition/Orders: D/C to Home Activity: Activity: Resume previous activity Diet: Diet: other (Low-fat ) Medications: Home Meds Active Scripts Oxycodone/Apap 7.5-325 (PERCOCET 7.5-325 MG TABLET ) 1 Each Tablet, 1 TAB PO QIDPRN PRN for PAIN MDD 4 Tablet(s) for 10 Days, #40 TAB 0 Refills Prov:ROLANDO BAUTISTA MD 05/17/21 Polyethylene Glycol 3350 (POLYETHYLENE GLYCOL 3350) 17 Gm Powd.pack, 17 GM PO PRN DAILY PRN for CONSTIPATION for 30 Days, #30 PKT Prov:ROLANDO BAUTISTA MD 05/17/21 Amoxicillin/Potassium Clav (AUGMENTIN 875-125 TABLET) 1 Each Tablet, 1 TAB PO BID for infection for 7 Days, #14 TAB 0 Refills Prov:ROLANDO BAUTISTA MD 11/19/21 Reported Medications Sucralfate (SUCRALFATE) 1 Gm Tablet, 1 TAB PO TID for GERD, #90 TAB 11 Refills 05/13/21 Omeprazole (OMEPRAZOLE) 20 Mg Capsule.dr, 1 CAP PO DAILY for GERD, #30 CAP 5 Refills 05/13/21 Scheduled Amoxicillin/Potassium Clav (Augmentin 875-125 Tablet), 1 TAB PO BID Omeprazole (Omeprazole), 1 CAP PO DAILY, (Reported) Sucralfate (Sucralfate), 1 TAB PO TID, (Reported) Scheduled PRN Oxycodone/Apap 7.5-325 (Percocet 7.5-325 Mg Tablet ), 1 TAB PO QIDPRN PRN for PAIN Polyethylene Glycol 3350 (Polyethylene Glycol 3350), 17 GM PO PRN DAILY PRN for CONSTIPATION Justicifation of Admission Dx: Justifications for Admission: Justification of Admission Dx: Yes ROLANDO BAUTISTA MD May 17, 2021 13:58
--- NOTE | 2021-05-17 14:40 | NUR ---
Discharge Note: SHAHRIAR ROSALES Discharge instructions and discharge home medications reviewed with Family Member and a copy given. All questions have been answered and understanding verbalized. The following instructions and handouts were given: discharge instructions, new prescriptions, education and follow up recommendations. Discontinued lines and drains: Peripheral IV discontinued intact. Patient discharged to Home or Self Care with Family Member via Wheelchair off unit by this RN.
--- NOTE | 2021-05-17 19:12 | PATHOLOGY ---
[facility] Accession Number: [id number] . 01 Material submitted: . liver - LIVER MASS BIOPSY . 01 Clinical history: . LIVER MASS LIVER BIOPSY ACUTE CHOLECYSTITIS . 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 SEE COMMENT. LBQ 05/17/2021 1218 Local . 02 Comment: Sections of the liver mass needle biopsy show extensive replacement of liver parenchyma by a malignant epithelial neoplasm. The tumor cells have a solid nested, trabecular, and focal acinar arrangement. The tumor cells have moderate amounts of pale eosinophilic cytoplasm, and possess enlarged, moderately to focally markedly pleomorphic hyperchromatic nuclei containing prominent nucleoli. Mitotic figures are present. There is focal tumor necrosis. A panel of immunoperoxidase stains is obtained on A2 and yields the following results: . Cytokeratin 7: Tumor cells positive Cytokeratin 20: Tumor cells negative Cytokeratin 19: Tumor cells positive CDX-2: Tumor cells negative TTF-1: Tumor cells negative JUVENCIO-3: Tumor cells positive Polyclonal CEA: Tumor cells focally positive Hepatocyte specific antigen: Tumor cells negative CD10: Focally positive PAX-8: Tumor cells negative . The morphologic and immunophenotyic findings are supportive of the diagnosis of involvement by poorly differentiated adenocarcinoma and are suggestive of biliary tract or pancreatic origin. Correlate clinically. The case is also examined by Dr. Esparza, who concurs with the diagnosis. The results are discussed with Dr. Brown on 05/17/21. (JPM/db; 05/17/2021) . . Special stains performed: Immunoperoxidase stains for CK7, CK20, CDX-2, TTF-1, JUVENCIO-3, PAX-8, CK19, polyclonal CEA, HSA and CD10 all on A2 . 02 Electronically signed: . Abeil Coffey MD, Pathologist NPI- [id number] . 01 Gross description: . The specimen is received in formalin, labeled "Connie Cisneros, liver BX". Received are 2 needle cores of pale yellow to red-brown tissue ranging in length from 1.8 to 1.9 cm by 0.1 cm in diameter. The specimen is submitted entirely in A1-A2. ([facility]; 05/15/2021) NRI/NRI 05/15/2021 2200 Local . 02 Pathologist provided ICD-10: C22.9 . 02 CPT . 102679, [id number], [id number] Specimen Comment: A courtesy copy of this report has been sent to [phone], [phone] Specimen Comment: [id number], , Specimen Comment: Report sent to , DR OSBORN, DR LEDEZMA / DR SULLIVAN Performed at: 01 [facility] [address], [place], [place] [id number] MD Abraham Brown MD Phone: [phone] Performed at: 02 [facility] [address] [place], [place] [id number] MD Abiel Coffey MD Phone: [phone]
[2021-05-18] MEDS ORDERED: PANTOPRAZOLE 40 MG TABLET.DR. PO SCH (07:30)
== END 2021-05-17 14:41 | disposition home or self-care (01) | DRG 435 ==
LOC: ER 08:16 → 5 NORTH 10:04
PROVIDERS: ADMIT Internal Medicine; ATTEND Internal Medicine
PROC: 0FB23ZX Excision of Left Lobe Liver, Percutaneous Approach, Diagnostic (ICD-10-PCS; principal; 2021-05-15)
DX: C78.7 Secondary malignant neoplasm of liver and intrahepatic bile duct (principal); J18.9 Pneumonia, unspecified organism; K80.43 Calculus of bile duct with acute cholecystitis with obstruction; E11.9 Type 2 diabetes mellitus without complications; E78.5 Hyperlipidemia, unspecified; K57.30 Diverticulosis of large intestine without perforation or abscess without bleeding; K82.8 Other specified diseases of gallbladder; M48.061 Spinal stenosis, lumbar region without neurogenic claudication; R13.11 Dysphagia, oral phase; Z20.822 Contact with and (suspected) exposure to COVID-19; Z80.42 Family history of malignant neoplasm of prostate; K21.9 Gastro-esophageal reflux disease without esophagitis; Z78.0 Asymptomatic menopausal state; D25.9 Leiomyoma of uterus, unspecified
CPT/HCPCS: 36415; 47000; 71045; 74177; 74230; 76705; 76942; 80048; 80053; 80076; 80307; 82378; 82550; 82962; 83690; 83735; 84100; 85025; 85610; 86705; 86709; 86803; 87340; 87426; 88307; 88341; 88342; 93005; 96361; 96374; 96375; 99152; 99153; C9113; J0295; J1650; J2060; J2250; J2270; J2405; J3010; J3490; J7030; Q9967; U0003; U0005; 92610-GN; 92611-GN; 99285-25; G0378